=== PATIENT | male | born 1965 | race Caucasian/White ===

== ENCOUNTER 2017-03-09 14:59 | Observation (INO) | payer SELFPAY ==
[2017-03-09] VITALS (7 sets, daily range): BP systolic 113–182; BP diastolic 60–102; PULSE 60–93; RESP 18–20; TEMP 97–98.7; O2SAT 94–98
[~2017-03-09] VITALS: Ht 157.5 cm; Wt 96.0 kg
[~2017-03-09 14:59] MED LIST: CIPR500T4 PO; DIFL500T PO; METR500I3 PO
[2017-03-09] MEDS ORDERED: NITROGLYCERIN 0.4 MG SL 25 TABS/BTL SL ONE (15:30)
[2017-03-09] MEDS ORDERED: ASPIRIN 325 MG TAB PO ONE (15:30)
[2017-03-09] MEDS: SODIUM CHLORIDE 0.9% FLUSH 10 ML FLUSH IVF PRN ×2 (15:42→15:50)
--- NOTE | 2017-03-09 15:43 | RADRPT ---
EXAM DATE/TIME: 03/09/2017 15:39 [place] COMPARISON: CHEST SINGLE AP, August 31, 2013, 15:39. INDICATIONS : Chest pressure and pain on the right side. MEDICAL HISTORY : Hypertension. SURGICAL HISTORY : None. ENCOUNTER: Initial ACUITY: 1 day PAIN SCORE: 5/10 LOCATION: Right upper chest FINDINGS: A single view of the chest demonstrates the lungs to be symmetrically aerated without evidence of mas s, infiltrate or effusion. The cardiomediastinal contours are unremarkable. Osseous structures are intact. CONCLUSION: Normal examination. Mik Alegre MD on March 09, 2017 at 15:41 Board Certified Radiologist. This report was verified electronically.
--- NOTE | 2017-03-09 15:44 | PD ---
HPI Chief Complaint: Chest Pain Time Seen by Provider: 15:38 Travel History International Travel<30 days: No Contact w/Intl Traveler<30days: No Traveled to known affect area: No History of Present Illness HPI 51-year-old male that presents to the ED for evaluation of chest pain. Patient has had this chest pain on and off since this morning. Per patient is pressure- like and comes and goes. Per patient is becoming more severe and progressively has worsened. He states that the pain currently 6 out of 10. Pressure-like. Per patient he feels like there is gas in his epigastric area and he has to move up but nothing comes up. He states that he has a history of hypertension and high cholesterol but takes no medications for them. No history of smoking. Does have a history of gastritis in the past. He states that he's never had anything like this before however. He did took an ibuprofen for this. No relief. Denies any headache. Per patient he does get diaphoretic. Has no allergies to medication. Chest pain does not radiate. States mainly on the epigastric area on the left side. No reproducible with touch. 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 HEAD: Atraumatic. Normocephalic. EYES: Pupils equal and round. No scleral icterus. No injection or drainage. ENT: No nasal bleeding or discharge. Mucous membranes pink and moist. Tongue is midline. No uvula deviation. NECK: Trachea midline. No JVD. CARDIOVASCULAR: Regular rate and rhythm. No murmurs, S3, S4. RESPIRATORY: No accessory muscle use. Clear to auscultation. Breath sounds equal bilaterally. GASTROINTESTINAL: Abdomen soft, non-tender, nondistended. Hepatic and splenic margins not palpable. MUSCULOSKELETAL: Extremities without clubbing, cyanosis, or edema. No obvious deformities. Full range of motion of the upper and lower extremities bilaterally. 2+ pulses bilaterally. NEUROLOGICAL: Awake and alert. No obvious cranial nerve deficits. Motor grossly within normal limits. Five out of 5 muscle strength in the arms and legs. Normal speech. PSYCHIATRIC: Appropriate mood and affect; insight and judgment normal. Data Data Last Documented VS Vital Signs Date Time Temp Pulse Resp B/P Pulse Ox O2 Delivery O2 Flow Rate FiO2 03/09/17 15:51 84 160/84 125/70 03/09/17 15:51 97 Room Air 03/09/17 15:08 98.7 19 Orders Electrocardiogram (03/09/17 15:17) Ckmb (Isoenzyme) Profile (03/09/17 15:17) Complete Blood Count With Diff (03/09/17 15:17) Comprehensive Metabolic Panel (03/09/17 15:17) Magnesium (Mg) (03/09/17 15:17) Prothrombin Time / Inr (Pt) (03/09/17 15:17) Act Partial Throm Time (Ptt) (03/09/17 15:17) Troponin I (03/09/17 15:17) Lipase (03/09/17 15:17) Chest, Single Ap (03/09/17 15:17) Ecg Monitoring (03/09/17 15:17) Bilateral Bp Monitoring (03/09/17 15:17) Iv Access Insert/Monitor (03/09/17 15:17) Oximetry (03/09/17 15:17) Oxygen Administration (03/09/17 15:17) Aspirin (Aspirin) (03/09/17 15:30) Sodium Chloride 0.9% Flush (Ns Flush) (03/09/17 15:30) Nitroglycerin Sl (Nitrostat Sl) (03/09/17 15:30) CKMB (03/09/17 15:30) CKMB% (03/09/17 15:30) Labs Laboratory Tests Test 03/09/17 15:30 White Blood Count 12.5 TH/MM3 Red Blood Count 4.99 MIL/MM3 Hemoglobin 15.0 GM/DL Hematocrit 43.3 % Mean Corpuscular Volume 86.9 FL Mean Corpuscular Hemoglobin 30.0 PG Mean Corpuscular Hemoglobin 34.6 % Concent Red Cell Distribution Width 13.0 % Platelet Count 296 TH/MM3 Mean Platelet Volume 8.6 FL Neutrophils (%) (Auto) 69.5 % Lymphocytes (%) (Auto) 20.2 % Monocytes (%) (Auto) 6.2 % Eosinophils (%) (Auto) 3.2 % Basophils (%) (Auto) 0.9 % Neutrophils # (Auto) 8.7 TH/MM3 Lymphocytes # (Auto) 2.5 TH/MM3 Monocytes # (Auto) 0.8 TH/MM3 Eosinophils # (Auto) 0.4 TH/MM3 Basophils # (Auto) 0.1 TH/MM3 CBC Comment DIFF FINAL Differential Comment Prothrombin Time 10.4 SEC Prothromb Time International 0.9 RATIO Ratio Activated Partial 27.2 SEC Thromboplast Time Sodium Level 140 MEQ/L Potassium Level 4.7 MEQ/L Chloride Level 105 MEQ/L Carbon Dioxide Level 25.6 MEQ/L Anion Gap 9 MEQ/L Blood Urea Nitrogen 14 MG/DL Creatinine 1.13 MG/DL Estimat Glomerular Filtration 69 ML/MIN Rate Random Glucose 131 MG/DL Calcium Level 8.9 MG/DL Magnesium Level 2.1 MG/DL Total Bilirubin 0.7 MG/DL Aspartate Amino Transf 41 U/L (AST/SGOT) Alanine Aminotransferase 31 U/L (ALT/SGPT) Alkaline Phosphatase 86 U/L Total Creatine Kinase 169 U/L Troponin I 0.02 NG/ML Total Protein 7.9 GM/DL Albumin 4.2 GM/DL Lipase 100 U/L [facility] Medical Decision Making Medical Screen Exam Complete: Yes Emergency Medical Condition: Yes Medical Record Reviewed: Yes Interpretation(s) EKG shows sinus rhythm with no sign of acute ischemia or arrhythmia. Read by me and attending. CBC & BMP Diagram 03/09/17 15:30 Troponin and CK-MB negative. LFTs and lipase within normal limits. Last Impressions Chest X-Ray 03/09/17 1517 Signed Impressions: Service Date/Time: Thursday, March 09, 2017 15:39 - CONCLUSION: Normal examination. Mik Alegre MD Differential Diagnosis Chest pain versus a typical chest pain versus ACS versus pancreatitis versus epigastric pain Narrative Course 51-year-old male that presents to the ED for evaluation of chest pain. Patient was properly examined and was found to have signs and symptoms concerning for cardiac disease. Initial EKG was negative for acute ischemia. Labs and imaging ordered. Labs and imaging were essentially unremarkable. Patient does have risk factors including hypertension and high cholesterol. Age as well. Recommendations for admission to the chest pain center. Patient agrees with plan. Patient was admitted to the chest pain center for ACS rule out. Diagnosis Primary Impression: Chest pain in adult Admitting Information Admitting Physician Requests: Vipul Hdz Mar 09, 2017 15:44
[2017-03-09 16:04] LABS: AUTOMATED NEUTROPHIL # 8.7 TH/MM3 (1.8-7.7); BASOPHIL # 0.1 TH/MM3 (0-0.2); BASOPHIL % 0.9 % (0.0-2.0); EOSINOPHIL # 0.4 TH/MM3 (0-0.4); EOSINOPHIL % 3.2 % (0.0-4.0); HEMATOCRIT 43.3 % (39.0-51.0); HEMO FLAGS DIFF FINAL; LYMPH % 20.2 % (9.0-44.0); LYMPHOCYTE # 2.5 TH/MM3 (1.0-4.8); MEAN CELL VOLUME 86.9 FL (80.0-100.0); MEAN CORPUSCULAR HGB CONC 34.6 % (32.0-36.0); MONO % 6.2 % (0.0-8.0); NEUT % 69.5 % (16.0-70.0); PLATELET COUNT 296 TH/MM3 (150-450); RED BLOOD COUNT 4.99 MIL/MM3 (4.50-5.90); WHITE BLOOD COUNT 12.5 TH/MM3 (4.0-11.0)
[2017-03-09 16:07] LABS: APTT (PATIENT) 27.2 SEC (24.3-30.1); INTERNATIONAL NORMALIZED RATIO 0.9 RATIO; PROTHROMBIN TIME - PATIENT 10.4 SEC (9.8-11.6)
[2017-03-09 16:18] LABS: ALT (GPT) 31 U/L (12-78); ANION GAP 9 MEQ/L (5-15); BICARBONATE 25.6 MEQ/L (21.0-32.0); BLOOD UREA NITROGEN 14 MG/DL (7-18); CHLORIDE 105 MEQ/L (98-107); GLOMERULAR FILTRATION RATE 69 ML/MIN (>89); MAGNESIUM 2.1 MG/DL (1.5-2.5); SODIUM (NA) 140 MEQ/L (136-145)
[2017-03-09 16:20] LABS: ALKALINE PHOSPHATASE 86 U/L (45-117); AST (GOT) 41 U/L (15-37); CREATINE KINASE 169 U/L (39-308); TOTAL BILIRUBIN ADULT 0.7 MG/DL (0.2-1.0)
[2017-03-09 16:21] LABS: POTASSIUM 4.7 MEQ/L (3.5-5.1)
[2017-03-09 16:32] LABS: CKMB LESS THAN 0.5 NG/ML (0.5-3.6)
[2017-03-09] MEDS ORDERED: ONDANSETRON HCL 4 MG/2 ML VIAL IV PRN (17:30)
[2017-03-09] MEDS ORDERED: SODIUM CHLORIDE 0.9% FLUSH 10 ML FLUSH IV FLUSH PRN (17:30)
[2017-03-09] MEDS ORDERED: cloNIDine HCL 0.1 MG TAB PO PRN (17:30)
[2017-03-09] MEDS ORDERED: RESP: ALBUTEROL 2.5 MG/IPRATROPIUM 0.5 MG NEB (PRN) INH (17:30)
--- NOTE | 2017-03-09 17:34 | HHI.HP ---
[facility] Primary Care Physician Anuj Paul M.D. Chief Complaint Chest pain History of Present Illness This is a 51-year-old male that presents to the ED via private vehicle with a complaint of developing a chest discomfort and 8:00 this morning while he was at work. 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 He states the discomfort as a pressure. It begins in the center of his chest radiating a little bit to the right. When it occurs it last for 5 minutes but he states that reoccurred 5 or 6 more times. He was little short of breath with it initially. Denies nausea or diaphoresis. He's not had this in the past. He cannot recall prior cardiac workup. Denies recent illnesses. Found nothing to bring on the discomfort. Review of Systems General: Patient denies fevers, chills recent, and recent travel HEENT: Patient denies headache, sore throat, difficulty swallowing. Cardiovascular: Has the chest discomfort as mentioned above. Denies sensation of heart beating rapidly or irregularly. No syncope. Respiratory: Initially a little short of breath. Denies inspirational chest discomfort. Denies coughing wheezing or hemoptysis. GI: Patient denies nausea, vomiting, diarrhea, abdominal pain, bloody stools. Musculoskeletal: Patient denies joint pain or edema. Denies calf pain or edema. Neurovascular: Patient denies numbness, tingling, weakness in extremities. Denies headache. Endocrine: Denies polyuria and polydipsia. Hematologic: Denies easy bruising. Skin: Denies rash or itching. Past Family Social History Allergies: Coded Allergies: No Known Allergies (Verified , 04/10/15) Past Medical History Kidney stones. History of hypertension but stopped taking medication only 6 months ago and believes that his blood pressure has been fine since. Hyperlipidemia but states his never taken medication for this. Denies diabetes and known CAD. Past Surgical History Lithotripsy. Reported Medications Reported Meds & Active Scripts Active Active Ordered Medications Current Medications Medications (Trade) Dose Ordered Sig/Armando Route Start Time Stop Time Status Last Admin (NS Flush) 2 ml UNSCH PRN IVF 03/09/17 15:30 03/09/17 15:50 (NS Flush) 2 ml UNSCH PRN IV FLUSH 03/09/17 17:30 (NS Flush) 2 ml BID IV FLUSH 03/09/17 21:00 (Tylenol) 500 mg Q4H PRN PO 03/09/17 17:30 (Zofran Inj) 4 mg Q6H PRN IV 03/09/17 17:30 (Nitroglycerin 2% Oint) 1 inch Q6HR TOP 03/09/17 18:00 Family History Denies family history of CAD. Social History Patient is a lifetime nonsmoker. He states that he is an alcoholic and has been sober for 2-1/2 years. Denies illicit drugs. He is . Physical Exam Vital Signs Vital Signs Date Time Temp Pulse Resp B/P Pulse Ox O2 Delivery O2 Flow Rate FiO2 03/09/17 15:51 84 160/84 125/70 03/09/17 15:51 160/84 03/09/17 15:51 97 Room Air 03/09/17 15:11 97 Room Air 03/09/17 15:08 98.7 93 19 160/84 97 03/09/17 15:02 97.8 90 182/102 98 Physical Exam GENERAL: This is a well-nourished, well-developed patient, in no apparent distress. Patient speaks in clear complete sentences. Patient is pleasant. HEENT: Head is atraumatic and normocephalic. Neck is supple without lymphadenopathy and trachea is midline. No JVD or carotid bruits. CARDIOVASCULAR: Regular rate and rhythm without murmurs, gallops, or rubs. RESPIRATORY: Clear to auscultation. Breath sounds equal bilaterally. No wheezes , rales, or rhonchi. Chest wall is nontender. No use of accessory muscles. GASTROINTESTINAL: Abdomen is nontender, nondistended. Abdomen soft. No obvious pulsatile mass or bruit. No CVA tenderness. Strong femoral pulses bilaterally. Normal bowel sounds in all quadrants. MUSCULOSKELETAL: Patient is moving upper and lower extremities freely. No calf tenderness or edema, no Homans sign. Strong pulses in upper and lower extremities. NEUROLOGICAL: Patient is alert and oriented. Cranial nerves 2-12 are grossly intact. No focal deficits and speech is clear. SKIN: No rash and turgor is normal. Laboratory Laboratory Tests Test 03/09/17 15:30 White Blood Count 12.5 Red Blood Count 4.99 Hemoglobin 15.0 Hematocrit 43.3 Mean Corpuscular Volume 86.9 Mean Corpuscular Hemoglobin 30.0 Mean Corpuscular Hemoglobin 34.6 Concent Red Cell Distribution Width 13.0 Platelet Count 296 Mean Platelet Volume 8.6 Neutrophils (%) (Auto) 69.5 Lymphocytes (%) (Auto) 20.2 Monocytes (%) (Auto) 6.2 Eosinophils (%) (Auto) 3.2 Basophils (%) (Auto) 0.9 Neutrophils # (Auto) 8.7 Lymphocytes # (Auto) 2.5 Monocytes # (Auto) 0.8 Eosinophils # (Auto) 0.4 Basophils # (Auto) 0.1 CBC Comment DIFF FINAL Differential Comment Prothrombin Time 10.4 Prothromb Time International 0.9 Ratio Activated Partial 27.2 Thromboplast Time Sodium Level 140 Potassium Level 4.7 Chloride Level 105 Carbon Dioxide Level 25.6 Anion Gap 9 Blood Urea Nitrogen 14 Creatinine 1.13 Estimat Glomerular Filtration 69 Rate Random Glucose 131 Calcium Level 8.9 Magnesium Level 2.1 Total Bilirubin 0.7 Aspartate Amino Transf 41 (AST/SGOT) Alanine Aminotransferase 31 (ALT/SGPT) Alkaline Phosphatase 86 Total Creatine Kinase 169 Creatine Kinase MB LESS THAN 0.5 Troponin I 0.02 Total Protein 7.9 Albumin 4.2 Lipase 100 Result Diagram: 03/09/17 1530 03/09/17 1530 Imaging Last 24 hours Impressions Chest X-Ray 03/09/17 1517 Signed Impressions: Service Date/Time: Thursday, March 09, 2017 15:39 - CONCLUSION: Normal examination. Mik Alegre MD Course Initial EKG is sinus rhythm rate of [address] segment depressions or elevations. Assessment and Plan Assessment and Plan * Chest pain: Patient will continue to have serial cardiac enzymes and EKGs for ruling out purposes. He will be seen by Dr. Ga Savage of cardiology in the chest pain center in the morning. Likely to proceed with stress testing if he rules out. He'll be discharged home if the stress test was nonischemic. States he has history of hypertension but has not needed medication months. He also states his history of hyperlipidemia but has never been on medication for this. He needs to follow-up with his primary care physician Dr. Anuj Paul to discuss this. Patient is stable at this time. He is agreeable to this plan. Silvino Bocanegra Mar 09, 2017 17:34
[2017-03-09] MEDS: NITROGLYCERIN 2% OINT 1 GM PACKET TOP SCH (18:19)
[2017-03-09] MEDS: PANTOPRAZOLE SOD 40 MG DELAYED RELEASE TAB PO SCH (18:19)
[2017-03-09] MEDS: SODIUM CHLORIDE 0.9% FLUSH 10 ML FLUSH IV FLUSH SCH (20:25)
[2017-03-09 20:49] LABS: CREATINE KINASE 178 U/L (39-308)
[2017-03-09 21:36] LABS: CKMB 9.2 NG/ML (0.5-3.6)
[2017-03-09] MEDS ORDERED: ATORVASTATIN 10 MG TAB PO SCH (21:45)
[2017-03-09] MEDS ORDERED: ASPIRIN 81 MG CHEW TAB CHEW ONE (21:45)
[2017-03-09] MEDS ORDERED: ENOXAPARIN SODIUM 80 MG/0.8 ML SYRINGE SQ ONE (22:00)
[2017-03-09] MEDS: ACETAMINOPHEN 500 MG CPLT PO PRN (22:45)
[2017-03-09 23:59] LABS: HDL CHOLESTEROL 31.5 MG/DL (40.0-60.0)
[2017-03-10] VITALS (11 sets, daily range): BP systolic 104–147; BP diastolic 62–81; PULSE 68–92; RESP 14–18; TEMP 97.9–98.5; O2SAT 95–97
[2017-03-10 00:02] LABS: CREATINE KINASE 259 U/L (39-308)
[2017-03-10] MEDS: NITROGLYCERIN 2% OINT 1 GM PACKET TOP SCH ×3 (00:17→12:00)
[2017-03-10 00:23] LABS: CKMB 22.5 NG/ML (0.5-3.6)
[2017-03-10] MEDS ORDERED: ASPIRIN 81 MG CHEW TAB CHEW SCH (09:00)
[2017-03-10] MEDS ORDERED: ASPIRIN 325 MG TAB PO SCH (09:00)
--- NOTE | 2017-03-10 09:23 | MB ---
cc: DULCE MARIA SMALL DATE OF CONSULTATION: 03/10/2017 REASON FOR CONSULTATION [id number] SD. HISTORY OF PRESENT ILLNESS This is a 51-year-old gentleman without prior history of known heart disease who presents to the emergency department with substernal chest pain which started yesterday morning. The patient states that he was at work, he does heavy lifting, and started developing a crescendo-type substernal chest pain. He denies any significant radiation, was associated with some shortness of breath, no diaphoresis or nausea. He came into the emergency department for further evaluation. There initial electrocardiogram and troponin were negative. He is scheduled for a stress test today but his second troponin and third troponin came back elevated. He has not had any recurrent symptoms. We are consulted for consideration of cardiac catheterization. PAST MEDICAL HISTORY 1. Kidney stones. 2. Hypertension. 3. Hyperlipidemia. MEDICATIONS Reported medications are none. ALLERGIES None. FAMILY HISTORY Denies any family history of early coronary artery disease or sudden cardiac . SOCIAL HISTORY Prior history of alcohol abuse, although he has not drank in 2-1/2 years. Denies any illicit drug use. Denies any smoking history. REVIEW OF SYSTEMS A 12-point review of systems was performed and negative unless otherwise noted in the history of present illness. PHYSICAL EXAMINATION VITAL SIGNS: Temperature 97, pulse 70, blood pressure 109/62 mmHg. GENERAL: Alert and oriented x3, in no acute distress. HEENT: Pupils reactive to light and accommodation. Extraocular movements are intact. NECK: No jugular venous distention. No thyromegaly. No lymphadenopathy. No carotid bruits. LUNGS: Clear to auscultation bilaterally. CARDIOVASCULAR: Regular rate and rhythm without murmurs, rubs or gallops. ABDOMEN: Nontender, nondistended. Good bowel sounds. No hepatosplenomegaly. EXTREMITIES: No clubbing, cyanosis or edema. Good peripheral pulses. NEUROLOGIC: Cranial nerves intact. Motor and sensory grossly intact. LABORATORY WBC 12.5, hemoglobin 15, platelet count 296. INR is 0.9. Troponin 1.86. Sodium 140, potassium 4.7, BUN 14, creatinine 1.13. Electrocardiogram: Sinus rhythm, no significant ischemic changes. ASSESSMENT 1. [id number] myocardial infarction. 2. Hypertension. 3. Hyperlipidemia. PLAN Given the patient's suggestive symptoms, risk factors, elevated troponin, all are consistent with acute coronary syndrome. We will plan for cardiac catheterization later today. The risks, benefits and alternatives were discussed with the patient. The patient understood and consented to the procedure. Will also obtain a 2-D echocardiogram to document ejection fraction. He is on aspirin, beta jose and statin therapy and is chest pain free. MD SANDER Schneider/BOBBY /8:58 AM /9:15 AM
[2017-03-10] MEDS: CARVEDILOL 3.125 MG TAB PO SCH ×2 (11:13→21:10)
[2017-03-10] MEDS: PANTOPRAZOLE SOD 40 MG DELAYED RELEASE TAB PO SCH (11:13)
[2017-03-10] MEDS: SODIUM CHLORIDE 0.9% FLUSH 10 ML FLUSH IV FLUSH SCH ×2 (11:15→21:11)
--- NOTE | 2017-03-10 13:04 | PD.CONS ---
HPI Service [facility] Consult Requested By Silvino Bocanegra Reason for Consult transfer of care from chest pain center Primary Care Physician Anuj Paul M.D. Diagnoses: (1) Chest pain in adult History of Present Illness Pt is a 51 yr old male w PMHx of HTN, recovering alcoholic, hyperlipidemia, presented to the chest pain center w complaints of chest pressure/tightness. Pt states that he woke up the day prior feeling uneased, he felt pressure on his chest and thought that it was gas. he tried to burp to see if that would relieve his pressure and drank soda but that didn't help. he went to work and the pressure-mid chest continued back and forth. He also felt some radiating pressure up to his neck. Denied any chest pain, SOB, nausea vomiting, diaphoresis, abdominal pain, palpitations. when he arrived here he receive nitroglycerin and that relieved his pressure. Currently he feels ok, no longer has the chest pressure Review of Systems Except as stated in HPI: all other systems reviewed are Neg Past Family Social History Allergies: Coded Allergies: No Known Allergies (Verified , 04/10/15) Past Medical History HTN, hyperlipidemia, no prior hx of CAD, hx of withdrawal sz in the past. alcoholism which he quit 2.5 years ago, kidney stones Past Surgical History lithotripsy Reported Medications Reported Meds & Active Scripts Active Family History mother alcoholic father had heart disease Social History denies any smoking hx was a heavy drinker for at least 10 years admits to trying a "couple of things" here and there in the past when asked about illegal drug use Physical Exam Vital Signs Vital Signs Date Time Temp Pulse Resp B/P Pulse Ox O2 Delivery O2 Flow Rate FiO2 03/10/17 12:32 97.9 73 14 118/73 97 03/10/17 07:53 97.9 70 15 109/62 95 03/10/17 04:00 81 03/10/17 03:33 98.0 69 18 104/62 95 03/10/17 00:00 74 03/09/17 23:50 98.1 86 20 113/65 94 03/09/17 23:45 18 03/09/17 20:41 97.0 60 18 120/60 96 03/09/17 20:00 95 03/09/17 20:00 78 03/09/17 19:00 78 03/09/17 15:51 84 160/84 125/70 03/09/17 15:51 160/84 03/09/17 15:51 97 Room Air 03/09/17 15:11 97 Room Air 03/09/17 15:08 98.7 93 19 160/84 97 03/09/17 15:02 97.8 90 182/102 98 Physical Exam GENERAL: This is a well-nourished, well-developed patient. SKIN: No rashes, ecchymoses or lesions. Cool and dry. HEAD: Atraumatic. Normocephalic. No temporal or scalp tenderness. EYES: Pupils equal round and reactive. Extraocular motions intact. No scleral icterus. No injection or drainage. ENT: Nose without drainage. Throat without erythema, tonsillar hypertrophy or exudate. Uvula midline. Airway patent. NECK: Trachea midline. No JVD CARDIOVASCULAR: Regular rate and rhythm without murmurs. RESPIRATORY: Clear to auscultation. Breath sounds equal bilaterally. No wheezes. GASTROINTESTINAL: Abdomen soft, non-tender, nondistended. No palpable masses. No guarding. MUSCULOSKELETAL: Extremities without edema. No calf tenderness. Negative Homans sign bilaterally. NEUROLOGICAL: Awake and alert. Cranial nerves II through XII intact. Motor and sensory grossly within normal limits. Five out of 5 muscle strength in all muscle groups. Normal speech. Laboratory Laboratory Tests Test 03/09/17 03/09/17 03/09/17 15:30 19:59 23:29 White Blood Count 12.5 Red Blood Count 4.99 Hemoglobin 15.0 Hematocrit 43.3 Mean Corpuscular Volume 86.9 Mean Corpuscular Hemoglobin 30.0 Mean Corpuscular Hemoglobin 34.6 Concent Red Cell Distribution Width 13.0 Platelet Count 296 Mean Platelet Volume 8.6 Neutrophils (%) (Auto) 69.5 Lymphocytes (%) (Auto) 20.2 Monocytes (%) (Auto) 6.2 Eosinophils (%) (Auto) 3.2 Basophils (%) (Auto) 0.9 Neutrophils # (Auto) 8.7 Lymphocytes # (Auto) 2.5 Monocytes # (Auto) 0.8 Eosinophils # (Auto) 0.4 Basophils # (Auto) 0.1 CBC Comment DIFF FINAL Differential Comment Prothrombin Time 10.4 Prothromb Time International 0.9 Ratio Activated Partial 27.2 Thromboplast Time Sodium Level 140 Potassium Level 4.7 Chloride Level 105 Carbon Dioxide Level 25.6 Anion Gap 9 Blood Urea Nitrogen 14 Creatinine 1.13 Estimat Glomerular Filtration 69 Rate Random Glucose 131 Calcium Level 8.9 Magnesium Level 2.1 Total Bilirubin 0.7 Aspartate Amino Transf 41 (AST/SGOT) Alanine Aminotransferase 31 (ALT/SGPT) Alkaline Phosphatase 86 Total Creatine Kinase 169 178 259 Creatine Kinase MB LESS THAN 0.5 9.2 22.5 Troponin I 0.02 0.66 1.86 Total Protein 7.9 Albumin 4.2 Triglycerides Level 300 Cholesterol Level 241 LDL Cholesterol 150 HDL Cholesterol 31.5 Cholesterol/HDL Ratio 7.65 Lipase 100 Result Diagram: 03/09/17 1530 03/09/17 1530 Imaging Last Impressions Chest X-Ray 03/09/17 1517 Signed Impressions: Service Date/Time: Thursday, March 09, 2017 15:39 - CONCLUSION: Normal examination. Mik Alegre MD Assessment and Plan Assessment and Plan Chest pressure/ concerning for ACS. serial CE trended up to 1.86. He was evaluated Dr. Ga Savage of cardiology and Dr. Giordano was consulted. He recommended a cardiac cath for which pt is scheduled for today. Continue BB, ASA and statin and nitro prn. continue TELE HTN: was not on any meds. currentlyon beta jose hyperlipidemia: on statin. alcoholism: stable quit 2.5 years ago Thank you for this consultation, we will continue to follow Code Status full Discussed Condition With Silvino Bocanegra and patient Magdalena Moreno MD Mar 10, 2017 13:04
[2017-03-10] MEDS ORDERED: HEPARIN-NS/PF INJ 500 ML ONE (13:36)
[2017-03-10] MEDS ORDERED: NITROGLYCERIN INJ 5 ML ONE (13:37)
[2017-03-10] MEDS ORDERED: MIDAZOLAM HCL 2 MG/2 ML VIAL ONE (13:37)
[2017-03-10] MEDS ORDERED: HEPARIN SODIUM - IV 10,000 UNITS/10 ML VIAL ONE (13:53)
[2017-03-10] MEDS: CLOPIDOGREL 75 MG TAB PO SCH (14:45)
--- NOTE | 2017-03-10 14:49 | CATHPROC ---
[facility] HIS Report Study Information Study Number Admission Scheduled Start Study Start [id number] Mar 09 2017 4:29PM 03/10/2017 Mar 10 2017 1:45PM [place] [facility] Cardiac Catheterization Admit Source Facility Department Emergency department [facility] - Grooming Sal[employer] Manager Physician and Clinical Staff Initial Mik Cotter Cable Engineer Outside Plantkimber Vasquez RN, Rossy Diop RN Recorder Anne Wolfe,APRON CLEANER TECH2 Scrub Jayjay Bruce,RT(R) Procedures Performed Procedure Location (Site) Vessel Name Coronary Angiograms RCA Right Coronary Equipment Time [place] Polisher Description Size Mfg Part Number Used/Scraped TRANSDUCER, TRUWAVE [id number] 14:13 GUIDRY APARICIO * Used W/STOCKCOCK *[id number] *[id number] *[id number] 14:13 [employer] PACK, CCL CUSTOM * Used *[id number] 14:13 [employer] SUPPORT, ARTERIAL ADULT [id number] Used [id number] 14:13 [employer] PACER PEN, SKIN DUAL W/ RULER * Used *[id number] BAND, RADIAL COMPRESSION TR [id number] 14:25 [employer] 24CM Used SHORT 24 *[id number] SHEATH, FR6 RADIAL PRELUDE 14:13 [employer] FR 6 [id number] Used EASE 11CM [id number] 14:13 [employer] WIRE, EXCHANGE 260CM 3MMJ 260CM Used *[id number] 14:13 [employer]COMED OMNIPAQUE, 350 MG, 150ML 150ML [id number] Used [id number] 14:13 Palmer Hargreaves BLANKET,WARM AIR CCL * Used *[id number] History: Allergies Allergy Reaction No Known Allergies History: Risk Factors Family History of Hypertension Dyslipidemia Previous LA Previous Heart Failure Premature CAD Yes Yes No No No Prior Valve Prior PCI Prior CABG Surgery No No No Cerebrovascular Peripheral Artery Chronic Lung On Dialysis Diabetes Disease Disease Disease No No No No No History: Symptoms/Diagnosis Selection Items Chest pain History: Stress Tests Stress or Imaging Studies Performed No Labs Hgb (g/dl) Hct (%) WBC (l/cumm) Platelets (thousands) 11.60-17.00 35.00-51.00 4.00-11.00 150.00-450.00 15.0 43.3 12.5 296 Glucose (mg/dl) BUN (mg/dl) Creatinine (mg/dl) BUN:Creatinine (1:x) 74.00-106.00 7.00-18.00 0.50-1.30 10.00-20.00 131 14 1.1 12.7 Na (meq/l) K (meq/l) 136.00-145.00 3.50-5.10 140 4.7 INR (PTT:PT) 0.90-1.10 0.9 Troponin I (ng/ml) CPK (u/l) CPK-MB (ng/ML) 0.02-0.05 26.00-308.00 0.50-3.60 1.86 259 22.5 Medication Medication Total Dose (Bolus/Oral) Medication Total Dosage/Unit 1% XYLOCAINE 20 mL FENTANYL 50 mcg HEPARIN 5000 units NTG (IC) 200 mcg VERSED 2 mg Medications (Bolus/Oral) Medication Time Given Dosage/Unit Administered By Reason FENTANYL 03/10/2017 2:06:56 PM 50 mcg Alfred Vasquez RN 50 mcg FENTANYL given in lab by Alfred Vasquez RN in Left Antecubital via Peripheral IV. Ordered by Mik Sesay. VERSED 03/10/2017 2:07:22 PM 2 mg Alfred Vasquez RN 2 mg VERSED given in lab by Alfred Vasquez RN in Left Antecubital via Peripheral IV. Ordered by Mik Giordano. 1% XYLOCAINE 03/10/2017 2:10:39 PM 20 mL Mik Giordano 20 mL 1% XYLOCAINE given in lab by Mik Giordano in Right Radial via Subcutaneous. HEPARIN 03/10/2017 2:13:49 PM 5000 units Alfred Vasquez RN 5000 units HEPARIN given in lab by Alfred Vasquez RN in Right Radial via Peripheral IV. Ordered by Mik An. NTG (IC) 03/10/2017 2:14:12 PM 200 mcg Mik Giordano 200 mcg NTG (IC) given in lab by Mik Giordano in Right Radial via Intra-arterial. Ordered by Mik Giordano. Medication (Drip) Medication Time Given Dosage/Unit Concentration/Unit Diluent (ml) Solution IV Solutions 03/10/2017 1:52:46 PM 0 mL (IV) 500 NaCl .9 Patient arrived on IV Solutions in Left Antecubital via Peripheral IV. Pump/Drip Flow = 20 ml/hr usin g NaCl .9. Initial Case Assessment Cardiovascular HR Rhythm NIBP Chest Pain 75 sr 134/82 0 Circulatory - Right Pulses Radial 2 Scale (0,1,2,3,4,d) Scale (0,1,2,3,4,d) Neurological State Oriented to time-place- Alert Moves all extremities person Respiration - General Respiration Rate SpO2 (%) (B/min) 11 96 Chronological Log Time Study Chronological Log 13:42:51 Patient arrived via Bed. 13:42:58 Patient Name, D.O.B, / Armband Verified By R.N. 13:44:08 Pre-op and post- op instructions given; patient acknowledges understanding of instruction s. 13:44:14 Verbal Stimulation=2 Physical Stimulation=2 Airway=2 Respiration=2 TOTAL=8. (0=absent, 1= limited, 2=present) 13:48:15 Allens test performed on the right radial and ulnar artery. 13:48:48 Reference ECG taken Vitals capture started with the following parameters, Patient=Adult, Interval=5 min, Initial Pr lcdyfm=499 mmHg, 13:49:03 Deflation Rate=5 mmHg 13:49:06 Consent signed by the physician and the patient and verified by the Grooming Salon Manager staff. 13:49:28 Presedation assessment performed by Grooming Salon Manager RN. 13:49:35 HR=74 bpm, RYSY=780/82 mmhg, SpO2=96.0 %, Resp=16 B/min, Jo=10 13:52:39 Patient has been NPO for More than 6Hrs. 13:52:40 Skin Breakdown-none 13:52:41 Shelly Prominences Protected 13:52:45 A # 20 IV was noted in the Antecubital (left). Grade = patent 13:52:46 Patient arrived on IV Solutions in Left Antecubital via Peripheral IV. Pump/Drip Flow = 20 ml/hr using NaCl .9. 13:52:47 History and physical on the chart or being dictated. Assessment: Initial Case, HR=75 BPM, Rhythm=sr, ZRJR=025/82 mmhg, Chest Pain=0 Right Pulses: Radial=2 13:52:49 Neurological: State=Alert, Ox3, RODAS Respiration: Resp=11 B/min, SpO2=96 % 13:52:54 Right groin and right wrist prepped with 2% chlorhexidine, and draped after a 3 min. waitin g time. 13:54:36 HR=76 bpm, ZUEP=080/84 mmhg, SpO2=96 %, Resp=19 B/min, Jo=10 13:59:37 HR=75 bpm, UPFS=198/87 mmhg, SpO2=98.0 %, Resp=17 B/min 14:01:22 Pressure channel 1 zeroed. 14:02:14 MD paged 14:03:20 MD responded 14:04:34 HR=70 bpm, PBWA=282/88 mmhg, SpO2=98.0 %, Resp=18 B/min, Pain=0, Jo=10, Valladares=2 14:05:52 MD arrived. 14:06:56 50 mcg FENTANYL given in lab by Alfred Vasquez RN in Left Antecubital via Peripheral IV. Orde red by Mik Giordano. 14:07:22 2 mg VERSED given in lab by Alfred Vasquez RN in Left Antecubital via Peripheral IV. Ordered by Mik Giordano. 14:09:40 HR=81 bpm, JVDO=213/85 mmhg, SpO2=95.0 %, Resp=12 B/min Time Out. Correct patient, correct procedure,correct physician, ,power injector loaded or not l oaded with contrast with 14:10:26 surgical team present. Time Out Concurred by MD, individual staff and DESULFURIZER OPERATOR in procedure 14:10:38 Case Start 14:10:39 20 mL 1% XYLOCAINE given in lab by Mik Giordano in Right Radial via Subcutaneous. 14:12:05 Access site was Radial Artery. A SHEATH, FR6 RADIAL PRELUDE EASE 11CM FR 6 was advanced into the Radial (right) using the Perc utaneous 14:12:23 technique. 14:12:49 In the Radial (right) the SHEATH, FR6 RADIAL PRELUDE EASE 11CM FR [address] by Mik Giordano. 14:13:49 5000 units HEPARIN given in lab by Alfred Vasquez RN in Right Radial via Peripheral IV. Order ed by Mik Giordano. 14:14:12 200 mcg NTG (IC) given in lab by Mik Giordano in Right Radial via Intra-arterial. Ordered by Mik Giordano. 14:14:34 HR=79 bpm, GDAY=448/82 mmhg, SpO2=98.0 %, Resp=12 B/min, Jo=10 A JR 5.0 INFINITI CATHETER FR 5 was advanced over a wire. OMNIPAQUE, 350 MG, 150ML 150ML was us ed for 14:14:37 injections. Recorded Pressure: LV, HR=82, Condition=Condition 1 14:14:50 (Left Ventricle) LV 143/-18/14 Recorded Pressure: LV, Ao, HR=78, Condition=Condition 1 14:14:52 (Left Ventricle) LV 138/-16/15, (Aorta) Ao 113/71/90 14:15:58 The RCA was injected and visualized at various angles. contrast used. After removing the current catheter a JL 3.5 INFINITI CATHETER FR 5 was advanced over a WIRE, EXCHANGE 260CM 14:17:43 3MMJ 260CM. 14:19:40 HR=80 bpm, ZEXB=506/81 mmhg, SpO2=95.0 %, Resp=12 B/min 14:22:43 Catheter was removed 14:23:19 Case End 14:24:39 HR=75 bpm, BGEJ=648/77 mmhg, SpO2=98.0 %, Resp=19 B/min Radial Compression Device Used. 12 mLs of air placed in BAND, RADIAL COMPRESSION TR SHORT 24 2 4CM. Affected 14:26:52 hand 95 % O2 saturation. 14:29:38 HR=76 bpm, IOXQ=392/81 mmhg, SpO2=95 %, Resp=14 B/min 14:30:56 Vitals capture stopped. 14:35:29 Patient moved to bed 14:35:37 Patient transported to DOCU. End Study - Contrast Media Used In Study Contrast Total Opened (mL) Total Used (mL) Total Wasted (mL) Omnipaque 70 70 0 End Study - Maximum Contrast Load Max Contrast Load (mL) 427.3 End Study - Radiation Exposure Fluoro Time (minutes) 3.3 End Study - Patient Disposition Complications Transferred To No Telemetry Bed
--- NOTE | 2017-03-10 14:58 | MA ---
cc: DULCE MARIA SMALL DATE: 03/10/2017 INDICATION [id number] [place]. PROCEDURE PERFORMED 1. Fluoroscopy with interpretation. 2. Left heart catheterization. 3. Coronary angiography. METHOD The risks, benefits and alternatives were discussed with the patient. The patient understood and consented to the procedure. The patient was brought into the catheterization lab and placed on the catheterization table. The right wrist was prepped and draped in a sterile fashion. The right wrist was anesthetized with 2% lidocaine. The right radial artery was cannulated and a 6-Romansh, 7 cm sheath was placed without difficulty. CORONARY ANGIOGRAPHY 1. The left main coronary is angiographically normal. 2. The left anterior descending coronary is mildly aneurysmal in the proximal segment. The midsegment has minor luminal irregularities. The remainder of the left anterior descending coronary is widely patent. There is a very small 1 mm diagonal branch vessel that has a 95% tubular stenosis which is likely the culprit lesion. There is distal ARNIE-II flow in the small diagonal branch. 3. The left circumflex gives rise to a first obtuse marginal branch that is tortuous but widely patent. 4. The right coronary is a dominant vessel giving rise to a posterior descending coronary. The right coronary has minor luminal irregularities. LEFT HEART CATHETERIZATION A 6-Romansh JR5 catheter is advanced across the aortic valve without difficulty. Intraventricular hemodynamics measured at 137/over 4 mmHg. CONCLUSIONS 1. Very small branch vessel coronary artery disease. 2. 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 3. Normal left-sided filling pressures. PLAN The culprit lesion appeared to be a very small diagonal branch not amenable to percutaneous intervention. Will initiate aggressive medical management which includes aspirin, Plavix, statin, beta jose and long-acting nitrate. Echocardiogram is pending. Given the small troponin bump will keep him overnight to make sure he does not have any arrhythmias. If all goes well I anticipate discharge tomorrow. MD SANDER Schneider/BOBBY /2:42 PM /2:51 PM
[2017-03-10] MEDS ORDERED: oxyCODONE/ACETAMINOPHEN 5 MG/325 MG TAB PO PRN (15:30)
[2017-03-10] MEDS ORDERED: BACITRACIN OINT 0.9 GM PKT TOP ONE ×2 (15:30→16:45)
[2017-03-10] MEDS ORDERED: MISC INFORMATION XX ONE (15:30)
--- NOTE | 2017-03-10 16:14 | EKG ---
Date Performed: 03/09/2017 Time Performed: 22:09:03 PTAGE: 51 years EKG: Sinus rhythm NORMAL ECG PREVIOUS TRACING : 03/09/2017 20.07 Since previous tracing, no significant change noted DOCTOR: Ga Savage Interpretating Date/Time 03/10/2017 16:13:39
--- NOTE | 2017-03-10 16:16 | EKG ---
Date Performed: 03/09/2017 Time Performed: 18:04:42 PTAGE: 51 years EKG: Sinus rhythm NON SPECIFIC T WAVE CHANGES INTERPRETATION BASED ON A DEFAULT AGE OF 42 YEARS NO PREVIOUS TRACING DOCTOR: Ga Savage Interpretating Date/Time 03/10/2017 16:15:15
--- NOTE | 2017-03-10 16:16 | EKG ---
Date Performed: 03/09/2017 Time Performed: 20:07:09 PTAGE: 51 years EKG: Sinus rhythm NON SPECIFIC T WAVE CHANGES PREVIOUS TRACING : 03/09/2017 15.11 Since previous tracing, no significant change noted DOCTOR: Ga Savage Interpretating Date/Time 03/10/2017 16:14:28
--- NOTE | 2017-03-10 16:17 | EKG ---
Date Performed: 03/09/2017 Time Performed: 15:11:32 PTAGE: 51 years EKG: Sinus rhythm NONSPECIFIC T WAVE CHANGES NO PREVIOUS TRACING DOCTOR: Ga Savage Interpretating Date/Time 03/10/2017 16:16:39
[2017-03-10] MEDS ORDERED: IOHEXOL 350 MG/ML 100 ML BTL (for Cath Lab) OTHER ONE (17:20)
[2017-03-10] MEDS: oxyCODONE/ACETAMINOPHEN 5 MG/325 MG TAB PO PRN (18:51)
[2017-03-10] MEDS ORDERED: ATORVASTATIN 40 MG TAB PO SCH (21:00)
[2017-03-10] MEDS: ACETAMINOPHEN 500 MG CPLT PO PRN (21:11)
[2017-03-11] VITALS (14 sets, daily range): BP systolic 109–121; BP diastolic 53–81; PULSE 68–94; RESP 18–20; TEMP 97.8–98.2; O2SAT 97–98
[2017-03-11] MEDS: ACETAMINOPHEN 500 MG CPLT PO PRN (04:01)
[2017-03-11 06:43] LABS: AUTOMATED NEUTROPHIL # 6.6 TH/MM3 (1.8-7.7); BASOPHIL # 0.1 TH/MM3 (0-0.2); BASOPHIL % 0.6 % (0.0-2.0); EOSINOPHIL # 0.7 TH/MM3 (0-0.4); EOSINOPHIL % 6.6 % (0.0-4.0); HEMATOCRIT 39.7 % (39.0-51.0); HEMO FLAGS DIFF FINAL; LYMPH % 23.8 % (9.0-44.0); LYMPHOCYTE # 2.6 TH/MM3 (1.0-4.8); MEAN CELL VOLUME 86.6 FL (80.0-100.0); MEAN CORPUSCULAR HEMOGLOBIN 30.2 PG (27.0-34.0); MEAN CORPUSCULAR HGB CONC 34.9 % (32.0-36.0); MONO % 8.5 % (0.0-8.0); NEUT % 60.5 % (16.0-70.0); PLATELET COUNT 243 TH/MM3 (150-450); RED BLOOD COUNT 4.59 MIL/MM3 (4.50-5.90); RED CELL DISTRIBUTION WIDTH 12.6 % (11.6-17.2); WHITE BLOOD COUNT 10.9 TH/MM3 (4.0-11.0)
[2017-03-11] MEDS ORDERED: ISOSORBIDE MONONITRATE 30 MG TAB PO SCH (07:00)
[2017-03-11 07:11] LABS: BICARBONATE 27.8 MEQ/L (21.0-32.0); POTASSIUM 3.7 MEQ/L (3.5-5.1)
--- NOTE | 2017-03-11 08:19 | PD.CARD.PN ---
Subjective Subjective Remarks denies chest pain, no arrhythmias seen on tele Objective Vital Signs / I&O Vital Signs Date Time Temp Pulse Resp B/P Pulse Ox O2 Delivery O2 Flow Rate FiO2 03/11/17 08:06 98 21 03/11/17 06:00 72 03/11/17 05:27 16 03/11/17 05:16 21 03/11/17 05:00 72 03/11/17 04:00 78 03/11/17 03:00 74 03/11/17 03:00 97.8 71 20 121/81 97 03/11/17 02:00 72 03/11/17 01:00 70 03/11/17 00:00 78 03/10/17 23:00 98.5 81 16 118/74 96 03/10/17 23:00 74 03/10/17 22:00 80 03/10/17 21:00 78 03/10/17 20:00 92 03/10/17 20:00 98.1 75 16 147/81 97 03/10/17 19:00 78 03/10/17 12:32 97.9 73 14 118/73 97 I/O 03/10/17 03/10/17 03/10/17 03/11/17 03/11/17 03/11/17 07:00 15:00 23:00 07:00 15:00 23:00 Intake Total 250 ml 480 ml Output Total 175 ml Balance 250 ml 305 ml Intake Oral 250 ml 480 ml Output Urine Total 175 ml # Voids 3 1 Physical Exam GENERAL: Well-nourished, well-developed patient in no apparent distress. NECK: No JVD. No carotid bruit. CARDIOVASCULAR: Regular rate and rhythm. S1/S2 no murmur, rub, or gallop. RESPIRATORY: No accessory muscle use. Clear to auscultation. Breath sounds equal bilaterally. GASTROINTESTINAL: Abdomen soft, non-tender, nondistended. MUSCULOSKELETAL: Extremities without clubbing, cyanosis, or edema. r. radial pulse 2+ Laboratory Laboratory Tests Test 03/11/17 05:55 White Blood Count 10.9 TH/MM3 Red Blood Count 4.59 MIL/MM3 Hemoglobin 13.9 GM/DL Hematocrit 39.7 % Mean Corpuscular Volume 86.6 FL Mean Corpuscular Hemoglobin 30.2 PG Mean Corpuscular Hemoglobin 34.9 % Concent Red Cell Distribution Width 12.6 % Platelet Count 243 TH/MM3 Mean Platelet Volume 8.0 FL Neutrophils (%) (Auto) 60.5 % Lymphocytes (%) (Auto) 23.8 % Monocytes (%) (Auto) 8.5 % Eosinophils (%) (Auto) 6.6 % Basophils (%) (Auto) 0.6 % Neutrophils # (Auto) 6.6 TH/MM3 Lymphocytes # (Auto) 2.6 TH/MM3 Monocytes # (Auto) 0.9 TH/MM3 Eosinophils # (Auto) 0.7 TH/MM3 Basophils # (Auto) 0.1 TH/MM3 CBC Comment DIFF FINAL Differential Comment Sodium Level 137 MEQ/L Potassium Level 3.7 MEQ/L Chloride Level 102 MEQ/L Carbon Dioxide Level 27.8 MEQ/L Anion Gap 7 MEQ/L Blood Urea Nitrogen 15 MG/DL Creatinine 0.98 MG/DL Estimat Glomerular Filtration 81 ML/MIN Rate Random Glucose 135 MG/DL Calcium Level 8.6 MG/DL Assessment and Plan Problem List: (1) Chest pain (2) Hypertension Assessment and Plan CAD - small vessel disease not amendable to intervention, continue medical management with ASA, Plavix, JASMYN-I, BB, Statin, Nitrate as tolerated F/U in our office in one to two weeks Angel Sam Mar 11, 2017 08:19
[2017-03-11] MEDS: SODIUM CHLORIDE 0.9% FLUSH 10 ML FLUSH IV FLUSH SCH (08:38)
[2017-03-11] MEDS: CLOPIDOGREL 75 MG TAB PO SCH (08:38)
[2017-03-11] MEDS: PANTOPRAZOLE SOD 40 MG DELAYED RELEASE TAB PO SCH (08:38)
[2017-03-11] MEDS: oxyCODONE/ACETAMINOPHEN 5 MG/325 MG TAB PO PRN (08:38)
[2017-03-11] MEDS: CARVEDILOL 3.125 MG TAB PO SCH (08:38)
[2017-03-11] MEDS ORDERED: ASPIRIN 325 MG TAB PO SCH (09:00)
--- NOTE | 2017-03-11 09:24 | HHI.PR ---
Objective Vitals Vital Signs Date Time Temp Pulse Resp B/P Pulse Ox O2 Delivery O2 Flow Rate FiO2 03/11/17 08:06 98 21 03/11/17 08:00 98.2 76 18 120/78 97 03/11/17 08:00 76 03/11/17 06:00 72 03/11/17 05:27 16 03/11/17 05:16 21 03/11/17 05:00 72 03/11/17 04:00 78 03/11/17 03:00 74 03/11/17 03:00 97.8 71 20 121/81 97 03/11/17 02:00 72 03/11/17 01:00 70 03/11/17 00:00 78 03/10/17 23:00 98.5 81 16 118/74 96 03/10/17 23:00 74 03/10/17 22:00 80 03/10/17 21:00 78 03/10/17 20:00 92 03/10/17 20:00 98.1 75 16 147/81 97 03/10/17 19:00 78 03/10/17 12:32 97.9 73 14 118/73 97 I/O 03/10/17 03/10/17 03/10/17 03/11/17 03/11/17 03/11/17 07:00 15:00 23:00 07:00 15:00 23:00 Intake Total 250 ml 480 ml Output Total 175 ml Balance 250 ml 305 ml Intake Oral 250 ml 480 ml Output Urine Total 175 ml # Voids 3 1 Result Diagram: 03/11/17 0555 03/11/17 0555 A/P Problem List: (1) Chest pain in adult ICD Code: R07.9 Status: Acute Assessment and Plan Chest pressure/ concerning for ACS. serial CE trended up to 1.86. He was evaluated Dr. Ga Savage of cardiology and Dr. Giordano was consulted. He recommended a cardiac cath for which pt is scheduled for today. Continue BB, ASA and statin and nitro prn. continue TELE 1. Very small branch vessel coronary artery disease. 2. 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 3. Normal left-sided filling pressures. PLAN The culprit lesion appeared to be a very small diagonal branch not amenable to percutaneous intervention. HTN: was not on any meds. currentlyon beta jose hyperlipidemia: on statin. alcoholism: stable quit 2.5 years ago Kimberly Chaney MD Mar 11, 2017 09:24
--- NOTE | 2017-03-11 09:31 | HHI.PR ---
Subjective Remarks resting comfortably with no distress. no chest pain or sob. Objective Vitals Vital Signs Date Time Temp Pulse Resp B/P Pulse Ox O2 Delivery O2 Flow Rate FiO2 03/11/17 08:06 98 21 03/11/17 08:00 98.2 76 18 120/78 97 03/11/17 08:00 76 03/11/17 06:00 72 03/11/17 05:27 16 03/11/17 05:16 21 03/11/17 05:00 72 03/11/17 04:00 78 03/11/17 03:00 74 03/11/17 03:00 97.8 71 20 121/81 97 03/11/17 02:00 72 03/11/17 01:00 70 03/11/17 00:00 78 03/10/17 23:00 98.5 81 16 118/74 96 03/10/17 23:00 74 03/10/17 22:00 80 03/10/17 21:00 78 03/10/17 20:00 92 03/10/17 20:00 98.1 75 16 147/81 97 03/10/17 19:00 78 03/10/17 12:32 97.9 73 14 118/73 97 I/O 03/10/17 03/10/17 03/10/17 03/11/17 03/11/17 03/11/17 07:00 15:00 23:00 07:00 15:00 23:00 Intake Total 250 ml 480 ml Output Total 175 ml Balance 250 ml 305 ml Intake Oral 250 ml 480 ml Output Urine Total 175 ml # Voids 3 1 Result Diagram: 03/11/17 0555 03/11/17 0555 Imaging Last Impressions Chest X-Ray 03/09/17 1517 Signed Impressions: Service Date/Time: Thursday, March 09, 2017 15:39 - CONCLUSION: Normal examination. Mik Alegre MD Objective Remarks GENERAL: This is a well-nourished, well-developed patient, in no apparent distress. CARDIOVASCULAR: Regular rate and regular rhythm without murmurs, gallops, or rubs. RESPIRATORY: Clear to auscultation. Breath sounds equal bilaterally. No wheezes , rales, or rhonchi. GASTROINTESTINAL: Abdomen soft, non-tender, nondistended. Normal, active bowel sounds MUSCULOSKELETAL: Extremities without clubbing, cyanosis, or edema. NEURO: Alert & Oriented x4 to person, place, time, situation. Moves all ext x4 Procedures cardiac cath Medications and IVs Current Medications Aspirin (Aspirin) 325 mg ONCE ONCE PO Last administered on 03/09/17 15:35; Start 03/09/17 at 15:30; Stop 03/09/17 at 15:31; Status DC Sodium Chloride (NS Flush) 2 ml UNSCH PRN IVF FLUSH AFTER USING IV ACCESS Last administered on 03/09/17 15:50; Start 03/09/17 at 15:30; Stop 03/09/17 at 17:41 ; Status DC Nitroglycerin (Nitrostat Sl) 0.4 mg ONCE ONCE SL Last administered on 15:36; Start 03/09/17 at 15:30; Stop 03/09/17 at 15:31; Status DC Sodium Chloride (NS Flush) 2 ml UNSCH PRN IV FLUSH FLUSH AFTER USING IV ACCESS ; Start 03/09/17 at 17:30 Sodium Chloride (NS Flush) 2 ml BID IV FLUSH Last administered on 03/11/17 08: 38; Start 03/09/17 at 21:00 Acetaminophen (Tylenol) 500 mg Q4H PRN PO HEADACHE Last administered on 04:01; Start 03/09/17 at 17:30 Ondansetron HCl (Zofran Inj) 4 mg Q6H PRN IV NAUSEA; Start 03/09/17 at 17:30 Nitroglycerin (Nitroglycerin 2% Oint) 1 inch Q6HR TOP Last administered on 03/10 12:00; Start 03/09/17 at 18:00; Stop 03/10/17 at 14:35; Status DC Albuterol/ Ipratropium (Duoneb Neb) 1 ampule Q4HR NEB PRN INH DYSPNEA; Start at 17:30 Clonidine (Catapres) 0.1 mg Q4H PRN PO SYS BP GREATER THAN 160 MMHG; Start at 17:30 Pantoprazole Sodium (Protonix) 40 mg DAILY PO Last administered on 03/11/17 08 :38; Start 03/09/17 at 17:30 Aspirin (Aspirin Chew) 81 mg DAILY CHEW ; Start 03/10/17 at 09:00; Stop at 09:00; Status DC Aspirin (Aspirin Chew) 81 mg ONCE ONCE CHEW Last administered on 03/09/17 22: 42; Start 03/09/17 at 21:45; Stop 03/09/17 at 22:20; Status DC Atorvastatin Calcium (Lipitor) 10 mg HS PO Last administered on 03/09/17 22:41 ; Start 03/09/17 at 21:45; Stop 03/10/17 at 14:35; Status DC Carvedilol (Coreg) 3.125 mg Q12HR PO Last administered on 03/11/17 08:38; Start 03/10/17 at 09:00 Enoxaparin Sodium (Lovenox Inj) 80 mg ONCE ONCE SQ Last administered on 22:42; Start 03/09/17 at 22:00; Stop 03/09/17 at 22:20; Status DC Aspirin 325 mg 325 mg DAILY PO Last administered on 03/10/17 11:13; Start at 09:00; Stop 03/10/17 at 14:35; Status DC Heparin Sodium/ Sodium Chloride (Heparin-NS/Pf Inj) 500 ml @ As Directed STK- MED ONCE .ROUTE Last administered on 03/10/17 13:36; Start 03/10/17 at 13:36; Stop 03/10/17 at 13:37; Status DC Midazolam HCl (Versed Inj) 2 mg STK-MED ONCE .ROUTE Last administered on 14:07; Start 03/10/17 at 13:37; Stop 03/10/17 at 13:38; Status DC Fentanyl Citrate 100 mcg 100 mcg STK-MED ONCE .ROUTE Last administered on 14:06; Start 03/10/17 at 13:37; Stop 03/10/17 at 13:38; Status DC Nitroglycerin (Nitroglycerin Inj) 5 ml @ As Directed STK-MED ONCE .ROUTE Last administered on 03/10/17 14:13; Start 03/10/17 at 13:37; Stop 03/10/17 at 13:38 ; Status DC Heparin Sodium (Porcine) (Heparin Inj) 10,000 units STK-MED ONCE .ROUTE Last administered on 03/10/17 14:13; Start 03/10/17 at 13:53; Stop 03/10/17 at 13:54 ; Status DC Aspirin (Aspirin) 81 mg DAILY PO Last administered on 03/11/17 08:38; Start at 09:00 Atorvastatin Calcium (Lipitor) 40 mg HS PO Last administered on 03/10/17 21:11 ; Start 03/10/17 at 21:00 Isosorbide Mononitrate (Imdur) 30 mg DAILY@07 PO Last administered on 06:07; Start 03/11/17 at 07:00 Clopidogrel Bisulfate (Plavix) 75 mg DAILY PO Last administered on 03/11/17 08 :38; Start 03/10/17 at 14:45 Miscellaneous Information 1 ONCE ONCE XX ; Start 03/10/17 at 15:30; Stop at 16:33; Status DC Oxycodone/ Acetaminophen (Percocet 5-325 Mg) 1 tab Q4H PRN PO PAIN SCALE 1 TO 4 Last administered on 03/11/17 08:38; Start 03/10/17 at 15:30 Oxycodone/ Acetaminophen (Percocet 5-325 Mg) 2 tab Q4H PRN PO PAIN SCALE 5 TO 10; Start 03/10/17 at 15:30 Bacitracin (Bacitracin Oint Packet) 0.9 gm ONCE ONCE TOP Last administered on 03/10/17 15:30; Start 03/10/17 at 15:30; Stop 03/10/17 at 16:32; Status DC Bacitracin (Bacitracin Oint Packet) 0.9 gm ONCE ONCE TOP ; Start 03/10/17 at 16 :45; Stop 03/10/17 at 16:46; Status DC Iohexol (OMNIPAQUE 350 INJ (Material Expeditor)) 100 ml STK-MED ONCE OTHER ; Start at 17:20; Stop 03/10/17 at 17:21; Status DC A/P Assessment and Plan A/P - CAD s/p cardiac cath with : 1. Very small branch vessel coronary artery disease. 2. 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 3. Normal left-sided filling pressures. The culprit lesion appeared to be a very small diagonal branch not amenable to percutaneous intervention. continue medical treatment- cleared by cardiology for discharge with outpatient f/u. HTN: was not on any meds. continue imdur and coreg. hyperlipidemia: on statin. Discharge Planning dc home today with f/u; pcp and cardiology. see med list. d/w the patient. Kimberly Chaney MD Mar 11, 2017 09:31
[2017-03-11] MEDS ORDERED: ATOR40TA16 PO (09:33)
[2017-03-11] MEDS ORDERED: CARV3.125 PO (09:33)
[2017-03-11] MEDS ORDERED: ASPI325T PO (09:33)
[2017-03-11] MEDS ORDERED: PLAV75TA29 PO (09:33)
[2017-03-11] MEDS ORDERED: ISOS30TA3 PO (09:33)
--- NOTE | 2017-03-11 09:34 | HHI.DS ---
Discharge Summary Admission Date Mar 09, 2017 at 16:29 Discharge Date: Mar 11, 2017 Admitting Diagnosis chest pain, r/o ACS (1) Chest pain in adult ICD Code: R07.9 Diagnosis: Principal Procedures cardiac cath Brief History - From Admission Pt is a 51 yr old male w PMHx of HTN, recovering alcoholic, hyperlipidemia, presented to the chest pain center w complaints of chest pressure/tightness. Pt states that he woke up the day prior feeling uneased, he felt pressure on his chest and thought that it was gas. he tried to burp to see if that would relieve his pressure and drank soda but that didn't help. he went to work and the pressure-mid chest continued back and forth. He also felt some radiating pressure up to his neck. Denied any chest pain, SOB, nausea vomiting, diaphoresis, abdominal pain, palpitations. when he arrived here he receive nitroglycerin and that relieved his pressure. Currently he feels ok, no longer has the chest pressure CBC/BMP: 03/11/17 0555 03/11/17 0555 Significant Findings Laboratory Tests Test 03/09/17 03/09/17 03/09/17 03/11/17 15:30 19:59 23:29 05:55 White Blood Count 12.5 TH/MM3 (4.0-11.0) Neutrophils # (Auto) 8.7 TH/MM3 (1.8-7.7) Estimat Glomerular Filtration 69 ML/MIN (>89) 81 ML/MIN (>89) Rate Random Glucose 131 MG/DL 135 MG/DL (74-106) (74-106) Aspartate Amino Transf 41 U/L (15-37) (AST/SGOT) Creatine Kinase MB LESS THAN 0.5 9.2 NG/ML 22.5 NG/ML NG/ML (0.5-3.6) (0.5-3.6) (0.5-3.6) Triglycerides Level 300 MG/DL (42-150) Cholesterol Level 241 MG/DL (120-200) LDL Cholesterol 150 MG/DL (0-99) HDL Cholesterol 31.5 MG/DL (40.0-60.0) Troponin I 0.66 NG/ML 1.86 NG/ML (0.02-0.05) (0.02-0.05) Monocytes (%) (Auto) 8.5 % (0.0-8.0) Eosinophils (%) (Auto) 6.6 % (0.0-4.0) Eosinophils # (Auto) 0.7 TH/MM3 (0-0.4) Imaging Last Impressions Chest X-Ray 03/09/17 1517 Signed Impressions: Service Date/Time: Thursday, March 09, 2017 15:39 - CONCLUSION: Normal examination. Mik Alegre MD PE at Discharge GENERAL: This is a well-nourished, well-developed patient, in no apparent distress. CARDIOVASCULAR: Regular rate and regular rhythm without murmurs, gallops, or rubs. RESPIRATORY: Clear to auscultation. Breath sounds equal bilaterally. No wheezes , rales, or rhonchi. GASTROINTESTINAL: Abdomen soft, non-tender, nondistended. Normal, active bowel sounds MUSCULOSKELETAL: Extremities without clubbing, cyanosis, or edema. NEURO: Alert & Oriented x4 to person, place, time, situation. Moves all ext x4 Hospital Course - CAD s/p cardiac cath with : 1. Very small branch vessel coronary artery disease. 2. 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 3. Normal left-sided filling pressures. The culprit lesion appeared to be a very small diagonal branch not amenable to percutaneous intervention. continue medical treatment- cleared by cardiology for discharge with outpatient f/u. HTN: was not on any meds. continue imdur and coreg. hyperlipidemia: on statin. Pt Condition on Discharge: Good Discharge Disposition: Discharge Home Discharge Time: <= 30 minutes Discharge Instructions DIET: Follow Instructions for: Heart Healthy Diet Activities you can perform: Regular-No Restrictions Follow up Referrals: Cardiology PCP Follow-up New Medications: Aspirin (Aspirin) 325 Mg Tab 81 MG PO DAILY cad Days 30 Ref 0 TAB Atorvastatin (Atorvastatin) 40 Mg Tab 40 MG PO HS cad Days 30 Ref 0 TAB Carvedilol (Coreg) 3.125 Mg Tab 3.125 MG PO Q12HR cad Days 30 Ref 0 TAB Clopidogrel (Plavix) 75 Mg Tab 75 MG PO DAILY cad Days 30 Ref 0 TAB Isosorbide Mononitrate ER (Isosorbide Mononitrate ER) 30 Mg Giana 30 MG PO DAILY@07 30 Ref 0 TAB Kimberly Chaney MD Mar 11, 2017 09:34
--- NOTE | 2017-03-11 09:34 | HHI.DCPOC ---
Discharge Care Plan Diagnosis: (1) Chest pain Your Health Problems Are: Chest Pain Goals to Promote Your Health * To prevent worsening of your condition and complications * To maintain your health at the optimal level Directions to Meet Your Goals Take your medications as prescribed Follow your dietary instruction Follow activity as directed Keep your appointments as scheduled Take your immunizations and boosters as scheduled If your symptoms worsen call your PCP, if no PCP go to Urgent Care Center or Emergency Room Smoking is Dangerous to Your Health. Avoid second hand smoke Call the 24-hour hour crisis hotline for domestic abuse at Kimberly Chaney MD Mar 11, 2017 09:34
--- NOTE | 2017-03-11 18:13 | ECHRPT ---
Indication: Chest pain, unspecified CONCLUSIONS Technically difficult echo In limited views, the left ventricular systolic function is normal with an estimated ejection fracti on in the range of 55-60%. There was limited left ventricular wall motion assessment due to poor endocardial visualization. BP: / HR: Rhythm: Sinus MEASUREMENTS (Male / Female) Normal Values Technical Quality:Fair 2D ECHO LV Diastolic Diameter PLAX 4.3 cm 4.2 - 5.9 / 3.9 - 5.3 cm LV Systolic Diameter PLAX 3.3 cm IVS Diastolic Thickness 1.1 cm 0.6 - 1.0 / 0.6 - 0.9 cm LVPW Diastolic Thickness 0.8 cm 0.6 - 1.0 / 0.6 - 0.9 cm LV Relative Wall Thickness 0.4 RV Internal Dim ED PLAX 2.4 cm LA Systolic Diameter LX 3.5 cm 3.0 - 4.0 / 2.7 - 3.8 cm M-MODE Aortic Root Diameter MM 3.1 cm AV Cusp Separation MM 1.9 cm DOPPLER Mitral E Point Velocity 55.5 cm/s Mitral A Point Velocity 48.2 cm/s Mitral E to A Ratio 1.2 TR Peak Velocity 179.0 cm/s TR Peak Gradient 12.8 mmHg FINDINGS LEFT VENTRICLE Normal left ventricular size. Wall thickness is normal. In limited views, the left ventricular systolic function is normal with an estimated ejection fracti on in the range of 55-60%. There was limited left ventricular wall motion assessment due to poor endocardial visualization. RIGHT VENTRICLE Normal right ventricular size and systolic function. LEFT ATRIUM The left atrial size is normal. RIGHT ATRIUM The right atrial size is normal. ATRIAL SEPTUM The interatrial septum not well visualized. AORTA The aortic root and proximal ascending aorta are not well visualized. MITRAL VALVE Structurally normal mitral valve. No mitral valve stenosis or regurgitation. AORTIC VALVE Trileaflet aortic valve. No aortic valve stenosis or regurgitation. TRICUSPID VALVE Structurally normal tricuspid valve. There is trace tricuspid valve regurgitation. PULMONARY VALVE Trivial pulmonary valve regurgitation. VESSELS The inferior vena cava is normal in size. PERICARDIUM No pericardial effusion. Reilly Oviedo DO (Electronically Signed) Final Date:11 March 2017 18:12
== END 2017-03-11 12:15 | disposition home or self-care (01) ==
LOC: NEPC 14:59 → NEDA 16:29 → NEPHCDU 18:44 → HCIS 03-10 17:40
PROVIDERS: ADMIT Family Medicine; ATTEND Family Medicine
DX: R07.89 Other chest pain (principal); I10 Essential (primary) hypertension; E78.5 Hyperlipidemia, unspecified; I25.10 Atherosclerotic heart disease of native coronary artery without angina pectoris; Z79.899 Other long term (current) drug therapy
CPT/HCPCS: 71010; 80048; 80053; 80061; 82550; 82552; 83690; 83735; 84484; 85025; 85610; 85730; 93005; 93306; 93458; 99285; C1769; C1893; G0378; J1644; J1650; J2250; J3010; Q9967

== ENCOUNTER 2017-08-05 10:27 | Emergency (ER) | payer OTHER ==
[~2017-08-05] VITALS: Ht 160 cm; Wt 90.0 kg
[~2017-08-05 10:27] MED LIST changes: +ASPI-183 PO; +ATOR40TA16 PO; +CARV3.125 PO; -CIPR500T4 PO; -DIFL500T PO; +ISOS30TA3 PO; -METR500I3 PO; +PLAV75TA29 PO
[2017-08-05 10:29] VITALS: BP 141/87; PULSE 93; RESP 17; TEMP 98.5; O2SAT 98
--- NOTE | 2017-08-05 10:49 | PD ---
HPI Chief Complaint: Injury Time Seen by Provider: 10:41 Travel History International Travel<30 days: No Contact w/Intl Traveler<30days: No Traveled to known affect area: No History of Present Illness HPI 51-year-old male presents emergency Department with complaint of right knee pain after slipping and twisting his knee while at work yesterday. Denies paresthesias, loss of sensation, decreased range of motion, decreased strength to the affected extremity. Has been ambulatory on the affected extremity. Pain is worse with external rotation of the leg, ambulation. Pain is decreased from a rest. Pain is to the lateral aspect. Rates pain 8/10. Taking ibuprofen and icing the knee for symptom management. Has no other medical complaints. No known allergies. Dr. Anuj Paul his primary care provider. No other modifying factors or associated signs and symptoms. PFSH Past Medical History Arthritis: No Blood Disorders: No Anxiety: Yes Heart Rhythm Problems: No Cancer: No Cardiovascular Problems: Yes ([place]) High Cholesterol: Yes Chemotherapy: No Chest Pain: No Congestive Heart Failure: No Cerebrovascular Accident: No Diminished Hearing: No Endocrine: No GERD: No Glaucoma: No Genitourinary: No Hiatal Hernia: No Hypertension: Yes Immune Disorder: No Kidney Stones: Yes (HAS HAD LITHOTRIPSY) Musculoskeletal: No Neurologic: Yes Psychiatric: No Reproductive: No Respiratory: No Migraines: No Radiation Therapy: No Seizures: Yes (seizure from alcohol withdrawal.) Thyroid Disease: No Ulcer: No PNEUMOCCOCAL Vaccine (Year): 2 Past Surgical History Genitourinary Surgery: Yes (kidney stones) Oral Surgery: No Tonsillectomy: Yes Other Surgery: No Social History Alcohol Use: No (quit 2 yrs ago) Tobacco Use: No Substance Use: No Allergies-Medications (Allergen,Severity, Reaction): Coded Allergies: No Known Allergies (Verified , 04/10/15) Reported Meds & Prescriptions Reported Meds & Active Scripts Active Isosorbide Mononitrate ER (Isosorbide Mononitrate) 30 Mg Giana 30 Mg PO DAILY@ 07 30 Days Plavix (Clopidogrel Bisulfate) 75 Mg Tab 75 Mg PO DAILY 30 Days Coreg (Carvedilol) 3.125 Mg Tab 3.125 Mg PO Q12HR 30 Days Atorvastatin (Atorvastatin Calcium) 40 Mg Tab 40 Mg PO HS 30 Days Aspirin 325 Mg Tab 81 Mg PO DAILY 30 Days Review of Systems Except as stated in HPI: all other systems reviewed are Neg Physical Exam Narrative GENERAL: Well-nourished, well-developed male patient, in no acute distress; afebrile, nontoxic-appearing SKIN: Warm and dry. HEAD: Atraumatic. Normocephalic. EYES: Pupils equal and round. No scleral icterus. No injection or drainage. ENT: Mucosa pink and moist. Airway patent. NECK: Trachea midline. CARDIOVASCULAR: Regular rate. RESPIRATORY: No accessory muscle use. GASTROINTESTINAL: Rounded. MUSCULOSKELETAL: Right knee nonedematous, nonerythematous, and without ecchymosis; full range of motion and flexion to 90; point tenderness to the lateral aspect; joint stable with negative drawer test; no obvious deformity. Right Lower extremity is supple and non-tense with 2+ pedal pulse and sensory intact and without erythema or edema. Ambulatory in room with a limp to the right lower extremity. No cyanosis. No edema. No deformity. NEUROLOGICAL: Awake and alert. Oriented 3. No obvious cranial nerve deficits. Motor grossly within normal limits. Normal speech. PSYCHIATRIC: Appropriate mood and affect; insight and judgment normal. Data Data Last Documented VS Vital Signs Date Time Temp Pulse Resp B/P (MAP) Pulse Ox O2 Delivery O2 Flow Rate FiO2 08/05/17 10:29 98.5 93 17 141/87 (105) 98 Room Air Orders Orders Knee, Complete (4vws) (08/05/17 10:48) Crutches (08/05/17 10:48) Ed Discharge Order (08/05/17 12:00) Splint Or Brace Apply/Monitor (08/05/17 12:00) [facility] Medical Decision Making Medical Screen Exam Complete: Yes Emergency Medical Condition: Yes Medical Record Reviewed: Yes Differential Diagnosis Knee sprain, knee injury, knee fracture, meniscal tear Narrative Course 51-year-old male with right knee injury. Patient took ibuprofen prior to arrival; instructed patient not to take NSAIDs secondary to the patient being on Plavix. Right knee x-ray ordered. 1159: Right knee x-ray with no acute findings. Patient provided a copy of the x-ray report. Crutches and Young bandage provided for support. Instructed patient to follow up with orthopedic surgeon. Instructed patient to follow up with primary care provider. Patient verbalizes understanding and agreement with treatment plan. Patient is medically cleared and stable for discharge. Discussed reasons to return to the emergency department. Patient agrees with treatment plan. The patients vital signs are stable and the patient is stable for outpatient follow-up and treatment. Patient discharged home, stable and in no acute distress. Diagnosis Primary Impression: Right knee injury Qualified Codes: S89.91XA - Unspecified injury of right lower leg, initial encounter Referrals: Orthopaedic Surgeon Primary Care Physician Patient Instructions: Crutch Instructions (ED), General Instructions, Knee Sprain (ED) Additional Instructions: Tylenol as needed and as directed to reduce pain and inflammation Rest, ice, compress, and elevate extremity to decrease pain and inflammation Knee brace for support Crutches for support Avoid aggravating activity; increase activity as tolerated Follow-up with primary care provider Follow-up with orthopedics Return to the emergency department immediately with worsening symptoms Med/Other Pt SpecificInfo: No Change to Meds, No Meds Exist/No RX given Disposition: 01 DISCHARGE HOME Condition: Stable Chula Sheets Aug 05, 2017 10:49
--- NOTE | 2017-08-05 11:52 | RADRPT ---
EXAM DATE/TIME: 08/05/2017 11:12 [place] COMPARISON: No previous studies available for comparison. INDICATIONS : Right knee pain after slipping and falling at work yesterday. MEDICAL HISTORY : Hypertension. SURGICAL HISTORY : None. ENCOUNTER: Initial ACUITY: 2 days PAIN SCORE: 8/10 LOCATION: Right lateral knee. FINDINGS: Four view examination of the right knee demonstrates no evidence of fracture or dislocation. Bony mi neralization is normal. The articular surfaces are intact. The suprapatellar soft tissues have a no rmal configuration. CONCLUSION: No acute disease. Cornelius Baker MD on August 05, 2017 at 11:50 Board Certified Radiologist. This report was verified electronically.
== END 2017-08-05 12:35 | disposition home or self-care (01) ==
LOC: NEPD 10:27
DX: S89.91XA Unspecified injury of right lower leg, initial encounter (principal); W01.0XXA Fall on same level from slipping, tripping and stumbling without subsequent striking against object, initial encounter
CPT/HCPCS: 73564; 99284; E0113

== ENCOUNTER 2018-08-09 07:11 | Observation (INO) ==
--- NOTE | 2018-08-09 07:40 | ED ---
HPI General Chief Complaint: Neuro Symptoms/Deficit Stated Complaint: Numbness in left hand Time Seen by Provider: 08/09/18 07:32 Source: patient Mode of arrival: ambulatory Limitations: other (poor historian) History of Present Illness HPI Narrative: 52 y/o male states he awoke this morning and felt numbness to his left hand. He states he is not having numbness anywhere else and denies any other current concerns. He states he is concerned as his hand is not getting better. He denies known trauma. He states he did democrat hard last night and had a lot to drink. Onset (ago): unknown Location: Reports left arm Quality: Reports numb Relieving factors: none Exacerbating factors: none On Anticoagulants: No Associated symptoms: Reports denies other symptoms Treatments Prior to Arrival: Reports none Related Data Home Medications Medication Instructions Recorded Confirmed atorvastatin [Lipitor] 20 mg PO QPM 08/09/18 08/09/18 metformin 500 mg PO DAILY 08/09/18 08/09/18 Allergies Allergy/AdvReac Type Severity Reaction Status Date / Time No Known Allergies Allergy Verified 08/09/18 07:38 Review of Systems ROS: all other systems reviewed are negative [facility] Medical History Medical History Alcoholic (Acute) Diabetes (Acute) Hyperlipemia (Acute) Hypertension (Acute) Surgical History Surgical History No history of previous surgery (Acute) Social History Social History Substance History: Active Abuse Second Hand Smoke Exposure: No Smoking Status: Never smoker How Often Do You Have a Drink Containing Alcohol: 4 or more times a week Recent Travel in [facility] within the Last 8 Weeks: No Recent Out of Country Travel within the Last 8 Weeks: No Substance Abuse Detail Marijuana: Substance Use Status: Active Route Used Substance Abuse: Inhalation Reason for Use: Calm Down Crack/Cocaine: Substance Use Status: Active Route Used Substance Abuse: Inhalation Reason for Use: Get High Immunization History Tetanus Immunization: >5 Years Exam Narrative Exam Narrative: GENERAL: 52 y/o male in no apparent distress SKIN: Focused skin assessment warm/dry. HEAD: Atraumatic. Normocephalic. EYES: Pupils equal and round. No scleral icterus. No injection or drainage. ENT: No nasal bleeding or discharge. Mucous membranes pink and moist. NECK: Trachea midline. CARDIOVASCULAR: Regular rate and rhythm. RESPIRATORY: No accessory muscle use. Clear to auscultation. Breath sounds equal bilaterally. GASTROINTESTINAL: Abdomen soft, non-tender, nondistended. MUSCULOSKELETAL: No obvious deformities. No clubbing. No cyanosis. No edema. Patient notes tingling in the ulnar distribution to left hand and states he cannot feel in that area. Patient has good capillary refill, strong radial pulse, no specific joint pain NEUROLOGICAL: Awake and alert. Neurologically intact other than noting numbness to left hand, motor grossly within normal limits. Normal speech. PSYCHIATRIC: Appropriate mood and affect; insight and judgment normal. Course Reevaluation(s) Reevaluation #1: patient updated and agrees to admit, given aspirin Consultations Consultation #1: dr constantino states to check mri brain and if ok can go home Consultation #2: dr garcia agrees to admit Initial Documented Vital Signs Temperature 98.9 F 08/09/18 07:26 Pulse Rate 92 H 08/09/18 07:26 Respiratory Rate 16 08/09/18 07:26 Blood Pressure 165/94 H 08/09/18 07:26 Pulse Oximetry 96 08/09/18 07:26 Last Documented Vital Signs Temperature 98.9 F 08/09/18 07:26 Pulse Rate 92 H 08/09/18 07:41 Respiratory Rate 18 08/09/18 07:41 Blood Pressure 135/81 08/09/18 07:41 Pulse Oximetry 98 08/09/18 07:41 NIH Stroke Scale NIH Stroke Scale Level of Consciousness: 0-Alert Orientation Questions: 0-Answers both correct Responds to Commands: 0-Both tasks correct Gaze Eye Movement: 0-Horizontal movement WNL Visual Ferrer: 0-No visual field defect Facial Movement: 0-Normal Motor Functions Arm LEFT: 0-No drift Motor Functions Arm RIGHT: 0-No drift Motor Functions Leg LEFT: 0-No drift Motor Functions Leg RIGHT: 0-No drift Limb Ataxia: 0-No ataxia Sensory Loss: 1-Mild sensory loss Best Language: 0-Normal Articulation: 0-Normal Extinction or Inattention Sensory: 0-Absent Total: 1 Medical Decision Making MDM Narrative Medical decision making narrative: Patient does not know time of onset and is now telling nursing staff he also used cocaine. Given his multiple risk factors although by history and exam this appears to be a radial nerve palsy will check other workup and discuss with neurology Medical Screen Exam Complete: Yes Emergency Medical Condition: Yes Differential Diagnosis Differential Diagnosis: Radial nerve palsy, atypical cardiac, electrolyte, subdural Lab Data Lab results reviewed: Yes I reviewed the patient's lab results. Result diagrams: 08/09/18 07:50 08/09/18 07:50 Lab Results 08/09/18 08/09/18 08/09/18 Range/Units 07:50 07:50 07:50 WBC 10.6 (4.0-11.0) th/mm3 RBC 4.91 (4.50-5.90) mil/mm3 Hgb 15.3 (13.0-17.0) gm/dL Hct 42.9 (39.0-51.0) % MCV 87.4 (80.0-100.0) fL MCH 31.2 (27.0-34.0) pg MCHC 35.8 (32.0-36.0) % RDW 13.2 (11.6-17.2) % Plt Count 320 (150-450) th/mm3 MPV 7.0 (7.0-11.0) fL Neut % (Auto) 57.6 (16.0-70.0) % Lymph % (Auto) 28.9 (9.0-44.0) % Fannin % (Auto) 10.9 H (0.0-8.0) % Eos % (Auto) 1.9 (0.0-4.0) % Baso % (Auto) 0.7 (0.0-2.0) % Neut # (Auto) 6.1 (1.8-7.7) th/mm3 Lymph # (Auto) 3.1 (1.0-4.8) th/mm3 Fannin # (Auto) 1.2 H (0.0-0.9) th/mm3 Eos # (Auto) 0.2 (0.0-0.4) th/mm3 Baso # (Auto) 0.1 (0.0-0.2) th/mm3 WBC Differential . Differential Comment Auto diff final PT 10.7 (9.8-11.6) sec INR 1.1 Ratio APTT 26.3 (23.4-31.7) sec Sodium 140 (136-145) meq/L Potassium 3.2 L (3.5-5.1) meq/L Chloride 99 (98-107) meq/L Carbon Dioxide 32.0 (21.0-32.0) meq/L Anion Gap 9 (5-15) meq/L BUN 5 L (7-18) mg/dL Creatinine 0.89 (0.60-1.30) mg/dL Estimated GFR Greater than 89 (>89) mL/min Random Glucose 162 H (74-106) mg/dL Calcium 8.2 L (8.5-10.1) mg/dL Total Creatine Kinase 228 (39-308) U/L CK-MB (CK-2) Less than 1.0 (0.5-3.6) ng/mL Troponin I Less than 0.02 L (0.02-0.05) ng/mL Urine Opiates Screen (Neg) Ur Barbiturates Screen (Neg) Ur Amphetamines Screen (Neg) U Benzodiazepines Scrn (Neg) Urine Cocaine Screen (Neg) U Cannabinoids Screen (Neg) Serum Alcohol 200 H (0-5) mg/dL 08/09/18 08/09/18 08/09/18 Range/Units 08:00 08:40 11:00 WBC (4.0-11.0) th/mm3 RBC (4.50-5.90) mil/mm3 Hgb (13.0-17.0) gm/dL Hct (39.0-51.0) % MCV (80.0-100.0) fL MCH (27.0-34.0) pg MCHC (32.0-36.0) % RDW (11.6-17.2) % Plt Count (150-450) th/mm3 MPV (7.0-11.0) fL Neut % (Auto) (16.0-70.0) % Lymph % (Auto) (9.0-44.0) % Fannin % (Auto) (0.0-8.0) % Eos % (Auto) (0.0-4.0) % Baso % (Auto) (0.0-2.0) % Neut # (Auto) (1.8-7.7) th/mm3 Lymph # (Auto) (1.0-4.8) th/mm3 Fannin # (Auto) (0.0-0.9) th/mm3 Eos # (Auto) (0.0-0.4) th/mm3 Baso # (Auto) (0.0-0.2) th/mm3 WBC Differential Differential Comment PT (9.8-11.6) sec INR Ratio APTT (23.4-31.7) sec Sodium (136-145) meq/L Potassium (3.5-5.1) meq/L Chloride (98-107) meq/L Carbon Dioxide (21.0-32.0) meq/L Anion Gap (5-15) meq/L BUN (7-18) mg/dL Creatinine (0.60-1.30) mg/dL Estimated GFR (>89) mL/min Random Glucose (74-106) mg/dL Calcium (8.5-10.1) mg/dL Total Creatine Kinase (39-308) U/L CK-MB (CK-2) (0.5-3.6) ng/mL Troponin I Less than 0.02 L Less than 0.02 L (0.02-0.05) ng/mL Urine Opiates Screen Neg (Neg) Ur Barbiturates Screen Neg (Neg) Ur Amphetamines Screen Neg (Neg) U Benzodiazepines Scrn Neg (Neg) Urine Cocaine Screen Pos H (Neg) U Cannabinoids Screen Neg (Neg) Serum Alcohol (0-5) mg/dL Imaging Data Attestation: I personally reviewed and interpreted this imaging study as follows : Radiologist's impression: Head CT 08/09/18 07:36 CONCLUSION: Negative noncontrast head CT. . Chest X-Ray 08/09/18 07:37 CONCLUSION: No acute cardiopulmonary abnormality is identified. Head MRI 08/09/18 08:45 CONCLUSION: 1. Focal signal abnormality involving the central portion of the bj suggesting focal pontine ischemic change. Clinical correlation is recommended. 2. No acute hemorrhage, acute infarct, midline shift or extra-axial fluid collections. Discharge Plan Discharge Disposition Patient Disposition: ED Admit(ED Internal Use Only) Discharge Order Discharge Orders: ED Use Only Admit Order (Routine); Ordered 08/09/18 Ordered By: Angi Cadena Discharge Details Diagnosis: Stroke, Hand numbness Physicians Team ED Provider: Angi Cadena Primary Care Provider: Anuj Paul Attending Provider: Jana Limon Discharge Interventions Interventions: Vital Signs Last Done: 08/09/18 07:41 Status ED Status: Admitted Patient
[2018-08-09 08:10] LABS: Baso # (Auto) 0.1 th/mm3 (0.0-0.2); Baso % (Auto) 0.7 % (0.0-2.0); Eos # (Auto) 0.2 th/mm3 (0.0-0.4); Eos % (Auto) 1.9 % (0.0-4.0); Hematocrit 42.9 % (39.0-51.0); Hemoglobin 15.3 gm/dL (13.0-17.0); Lymph # (Auto) 3.1 th/mm3 (1.0-4.8); Lymph % (Auto) 28.9 % (9.0-44.0); Mean Corpuscular HGB Conc 35.8 % (32.0-36.0); Mean Corpuscular Hemoglobin 31.2 pg (27.0-34.0); Mean Corpuscular Volume 87.4 fL (80.0-100.0); Mono # (Auto) 1.2 th/mm3 (0.0-0.9); Mono % (Auto) 10.9 % (0.0-8.0); Neut # (Auto) 6.1 th/mm3 (1.8-7.7); Neut % (Auto) 57.6 % (16.0-70.0); Platelet Count 320 th/mm3 (150-450); Red Blood Count 4.91 mil/mm3 (4.50-5.90); Red Cell Distribution Width 13.2 % (11.6-17.2); White Blood Count 10.6 th/mm3 (4.0-11.0)
[2018-08-09 08:16] LABS: Activated Partial Thrombo Time 26.3 sec (23.4-31.7); INR 1.1 Ratio; Prothrombin Time 10.7 sec (9.8-11.6)
[2018-08-09 08:18] LABS: Amphetamine Screen,Urine Neg (Neg); Barbiturate Screen,Urine Neg (Neg); Cannabinoid Screen,Urine Neg (Neg); Cocaine Screen,Urine Pos (Neg)
[2018-08-09 08:19] LABS: Opiate Screen,Urine Neg (Neg)
--- NOTE | 2018-08-09 08:20 | CT ---
EXAM DATE: 08/09/2018 8:14 AM EST AGE/SEX: 52 years / Male INDICATIONS: Patient experiencing numbness to left hand since this morning. CLINICAL DATA: This is the patient's initial encounter. Patient reports that signs and symptoms have been present for 1 day and indicates a pain score of 0/10. MEDICAL/SURGICAL HISTORY: Diabetes. Hypertension. None. RADIATION DOSE: 56.35 CTDI (mGy) COMPARISON: [facility] [place], CT BRAIN W/O CONTRAST, 08/31/2013. . TECHNIQUE: CT of the head without contrast. Using automated exposure control and adjustment of the mA and/or kV according to patient size, radiation dose was kept as low as reasonably achievable to ob tain optimal diagnostic quality images. DICOM format image data is available electronically for revi ew and comparison. FINDINGS: Cerebrum: The ventricles are normal. No midline shift, mass lesion, hemorrhage or acute infarction. No extraaxial fluid collections are seen. Posterior Fossa: The cerebellum and brainstem demonstrate no acute abnormality. The 4th ventricle is midline. The cerebellopontine angle is within normal limits. Extracranial: The visualized sinuses are clear. Skull: The calvaria is intact. No skull fracture. CONCLUSION: Negative noncontrast head CT. . Electronically signed by: Jonnathan Shelton MD Board Certified Radiologist 08/09/2018 8:18 AM EST
[2018-08-09 08:26] LABS: Anion Gap 9 meq/L (5-15); Blood Urea Nitrogen 5 mg/dL (7-18); Calcium 8.2 mg/dL (8.5-10.1); Chloride 99 meq/L (98-107); Glucose,Random 162 mg/dL (74-106); Potassium 3.2 meq/L (3.5-5.1); Sodium 140 meq/L (136-145)
[2018-08-09 08:28] LABS: Alcohol 200 mg/dL (0-5)
[2018-08-09 08:31] LABS: Creatine Kinase 228 U/L (39-308); Glomerular Filtration Rate Greater Than 89 mL/min (>89)
--- NOTE | 2018-08-09 08:34 | XR ---
EXAM DATE: 08/09/2018 8:25 AM EST AGE/SEX: 52 years / Male INDICATIONS: Cough and heart palpitations CLINICAL DATA: This is the patient's initial encounter. Patient reports that signs and symptoms have been present for 1 day and indicates a pain score of 0/10. MEDICAL/SURGICAL HISTORY: None. None. COMPARISON: [facility] – [place], CHEST SINGLE AP, 03/09/2017. . FINDINGS: Portable AP view of the chest demonstrates a normal-sized cardiac silhouette. No effusion, consolidat ion, or pneumothorax is identified. The bones and soft tissues demonstrate no acute finding. CONCLUSION: No acute cardiopulmonary abnormality is identified. Electronically signed by: Jonnathan Shelton MD Board Certified Radiologist 08/09/2018 8:33 AM EST
--- NOTE | 2018-08-09 10:45 | MR ---
EXAM DATE: 08/09/2018 10:37 AM EST AGE/SEX: 52 years / Male INDICATIONS: . Numbness to left arm and hand. CLINICAL DATA: This is the patient's initial encounter. Patient reports that signs and symptoms have been present for 1 day and indicates a pain score of 2/10. MEDICAL/SURGICAL HISTORY: Diabetes mellitus type II. Hypertension. None. COMPARISON: [facility] [place], CT HEAD W/O CONTRAST, 08/09/2018. [facility] [place], CT BRAIN W/O CONTRAST, 08/31/2013. . TECHNIQUE: Multiplanar, multisequence examination of the brain was performed without contrast. FINDINGS: Cerebrum: The ventricles are normal for age. No evidence of midline shift, mass lesion, hemorrhage or acute infarction. No extraaxial fluid collections are seen. The pituitary gland and suprasellar cistern are normal in configuration. White Matter: No significant signal abnormalities are seen in the white matter. Posterior Fossa: There is focal signal abnormality involving the central portion of the bj suggesti ng focal pontine ischemic change. The cerebellum is intact. The 4th ventricle is midline. The cereb ellopontine angle is unremarkable. The cerebellar tonsils are normal in position. Diffusion Imaging: No focal areas of restricted diffusion are seen. No evidence of acute infarction . Extracranial: The visualized portions of the orbits and paranasal sinuses are unremarkable. CONCLUSION: 1. Focal signal abnormality involving the central portion of the bj suggesting focal pontine ische elizabeth change. Clinical correlation is recommended. 2. No acute hemorrhage, acute infarct, midline shift or extra-axial fluid collections. Electronically signed by: Kwabena Dobbins MD Board Certified Radiologist 08/09/2018 10:43 AM EST
[2018-08-09] MEDS ORDERED: Aspirin 325 MG Tablet PO ONE (10:54)
[2018-08-09] MEDS: Sod Chloride 0.9% Inj 1,000 ML IV.CONT SCH ×2 (11:09→16:57)
[2018-08-09] MEDS ORDERED: Dextrose 50% in Water 50 ML Vial IV.PUSH PRN (12:15)
[2018-08-09] MEDS ORDERED: Acetaminophen 325 MG Tablet PO PRN (12:15)
[2018-08-09] MEDS: Heparin - SQ 10,000 UNITS/ML Vial SQ SCH (12:31)
[2018-08-09] MEDS ORDERED: LORazepam 1 MG Tablet PO PRN (13:55)
[2018-08-09] MEDS ORDERED: Gadobutrol PF 10 MMOL/10 ML Vial (for RAD) IV.SIG ONE (14:01)
--- NOTE | 2018-08-09 14:06 | P.HPIM ---
History of Present Illness Primary Care Physician: Anuj Paul MD Chief Complaint: Left arm weakness History of Present Illness: 52-year-old gentleman states he awoke with left hand not working, and numbness in the fourth and fifth digits of the left hand. Patient states he had been drinking last night and also took some cocaine, which he states he rarely does. He then drank a beer this morning to take the edge off, but noted that he still had numbness tingling in his left hand. So he came to the emergency room, where CT of head was unremarkable, but MRI of the brain showed a central pontine infarct. Patient denies lightheadedness dizziness headache, no falls, no history of stroke, palpitations, or other symptoms. 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 PMhx: Udu-usstqme-dyqgszrci diabetes, hypertension, alcohol abuse PSXhx: Denies any surgeries SOChx: Does not smoke, admits to heavy alcohol use, admits to marijuana use, admits to occasional cocaine use, FAMhx: Denies premature cardiac disease stroke or cancer Review of Systems Review of Systems: all other systems reviewed are negative [facility] Medical History Medical History Alcoholic (Acute) Diabetes (Acute) Hyperlipemia (Acute) Hypertension (Acute) Surgical History Surgical History No history of previous surgery (Acute) Social History Social History Substance History: Active Abuse Second Hand Smoke Exposure: No Smoking Status: Never smoker How Often Do You Have a Drink Containing Alcohol: 4 or more times a week Recent Travel in [facility] within the Last 8 Weeks: No Recent Out of Country Travel within the Last 8 Weeks: No Substance Abuse Detail Marijuana: Substance Use Status: Active Route Used Substance Abuse: Inhalation Reason for Use: Calm Down Crack/Cocaine: Substance Use Status: Active Route Used Substance Abuse: Inhalation Reason for Use: Get High Immunization History Tetanus Immunization: >5 Years Medications and Allergies Allergies Allergy/AdvReac Type Severity Reaction Status Date / Time No Known Allergies Allergy Verified 08/09/18 07:38 Home Medications Medication Instructions Recorded Confirmed Type atorvastatin [Lipitor] 20 mg PO QPM 08/09/18 08/09/18 History metformin 500 mg PO DAILY 08/09/18 08/09/18 History Active Medications: Active Medications Acetaminophen (Tylenol) 650 mg PO Q4H PRN PRN Reason: Temp > 100.4 Al Hydroxide/Mg Hydroxide (Milk Of Fatmata Likina) 30 ml PO Q12H PRN PRN Reason: Mild Constipation Dextrose (D50w Vial) 50 ml IV.PUSH UNSCH PRN PRN Reason: PER HYPOGLYCEMIA PROTOCOL Glucagon (Glucagon Inj) 1 mg OTHER PRN PRN PRN Reason: for Hypoglycemia Protocol Heparin Sodium (Porcine) (Heparin Inj) 5,000 units SQ Q12H [facility] Last Admin: 08/09/18 12:31 Dose: 5,000 units Sodium Chloride (Ns Inj) 1,000 mls @ 70 mls/hr IV.CONT .[id number] [facility] Last Admin: 08/09/18 11:09 Dose: 70 mls/hr Insulin Aspart (Novolog Insulin Correctional Sugar Inj) 0 unit SQ ACHS [facility]; Protocol Ondansetron HCl (Zofran Inj) 4 mg IV.PUSH Q6H PRN PRN Reason: NAUSEA OR VOMITING Senna/Docusate Sodium (Leti-Colace) 1 tab PO BID [facility] Sennosides (Senokot) 17.2 mg PO Q12H PRN PRN Reason: Moderate Constipation Sodium Chloride (Ns Flush) 2 ml IV.FLUSH PRN PRN PRN Reason: FLUSH AFTER USING IV ACCESS Sodium Chloride (Ns Flush) 2 ml IV.FLUSH BID [facility] Sodium Chloride (Ns Flush) 2 ml IV.FLUSH PRN PRN PRN Reason: FLUSH AFTER USING IV ACCESS Physical Exam Vital signs: Last Vital Signs Temp 98.9 F 08/09/18 07:26 Pulse 91 H 08/09/18 11:15 Resp 18 08/09/18 11:15 BP 130/77 08/09/18 11:15 Pulse Ox 97 08/09/18 12:20 Intake & Output 08/07/18 08/08/18 08/09/18 08/10/18 06:59 06:59 06:59 06:59 Output Total 250 / 250 Balance -250 / -250 Weight 77.111 kg GEN well-developed well-nourished white male awake alert oriented to person time and place, pleasant in no acute distress, fluent speech HEENT normocephalic atraumatic, Pupils equal reactive, sclerae anicteric, extraocular motion intact, mucosa is moist. posterior pharynx clear, no facial asymmetry NECK supple no JVD trachea midline thyroid smooth not enlarged ANT CHEST WALL without mass or tenderness to palpation HEART S1-S2 regular without murmur gallops or clicks LUNGS clear to auscultation without wheeze rales or rhonchi , full symmetric expansion BACK exam is no CVA tenderness or mass ABDOMEN soft nondistended positive bowel sounds no guarding rebound rigidity LYMPH NODES no cervical, axillary or inguinal adenopathy noted EXTREMITIES no clubbing cyanosis or significant edema, peripheral pulses palpable +2 NEUROLOGIC cranial nerves II through XII appear grossly intact, strength is 5 out of 5 symmetrical lower extremities, left upper extremity 4 out of 5 strength , no clonus or rigidity SKIN warm and dry with good turgor, no other rash or sores noted Results Labs CBC & Chem 7: 08/09/18 07:50 08/09/18 07:[address] 08/09/18 07:36 CONCLUSION: Negative noncontrast head CT. . Chest X-Ray 08/09/18 07:37 CONCLUSION: No acute cardiopulmonary abnormality is identified. Head MRI 08/09/18 08:45 CONCLUSION: 1. Focal signal abnormality involving the central portion of the bj suggesting focal pontine ischemic change. Clinical correlation is recommended. 2. No acute hemorrhage, acute infarct, midline shift or extra-axial fluid collections. Caprini VTE Risk Assessment Caprini VTE Risk Assessment: Moderate/High Risk (score >= 2) Caprini Risk Assessment Model: Point Value = 1 Point Value = 2 Point Value = 3 Point Value = 5 Age 41-60 Minor surgery BMI > 25 kg/m2 Swollen legs Varicose veins or History of unexplained or recurrent spontaneous Oral contraceptives or hormone replacement Sepsis (< 1 month) Serious lung disease, including pneumonia (< 1 month) Abnormal pulmonary function Acute myocardial infarction Congestive heart failure (< 1 month) History of inflammatory bowel disease Medical patient at bed rest Age 61-74 Arthroscopic surgery Major open surgery (> 45 min) Laparoscopic surgery (> 45 min) Malignancy Confined to bed (> 72 hours) Immobilizing plaster cast Central venous access Age >= 75 History of VTE Family history of VTE Factor V Leiden Prothrombin [id number] Lupus anticoagulant Anticardiolipin antibodies Elevated serum homocysteine Heparin-induced thrombocytopenia Other congenital or acquired thrombophilia Stroke (< 1 month) Elective arthroplasty Hip, pelvis, or leg fracture Acute spinal cord injury (< 1 month) Prophylaxis Regimen: Total Risk Factor Score Risk Level Prophylaxis Regimen 0-1 Low Early ambulation 2 Moderate Order ONE of the following: *Sequential Compression Device (SCD) *Heparin 5000 units SQ BID 3-4 Higher Order ONE of the following medications: *Heparin 5000 units SQ TID *Enoxaparin/Lovenox 40 mg SQ daily (WT < 150 kg, CrCl > 30 mL/min) *Enoxaparin/Lovenox 30 mg SQ daily (WT < 150 kg, CrCl > 10-29 mL/min) *Enoxaparin/Lovenox 30 mg SQ BID (WT < 150 kg, CrCl > 30 mL/min) AND/OR *Sequential Compression Device (SCD) 5 or more Highest Order ONE of the following medications: *Heparin 5000 units SQ TID (Preferred with Epidurals) *Enoxaparin/Lovenox 40 mg SQ daily (WT < 150 kg, CrCl > 30 mL/min) *Enoxaparin/Lovenox 30 mg SQ daily (WT < 150 kg, CrCl > 10-29 mL/min) *Enoxaparin/Lovenox 30 mg SQ BID (WT < 150 kg, CrCl > 30 mL/min) AND *Sequential Compression Device (SCD) Assessment and Plan Plan ACUTE CVA - pontine infarct - admit, neuro consult, asa, echo, carotids, tele HTN ETOH ABUSE with etoh withdrawl/ pending DTs start CIWA protocol, thiamine, folate COCAINE and THC use - cessation discussed DYSLIPIDEMIA - cont statin and check fasting lipids HYPOKALEMIA - replace and check mg
--- NOTE | 2018-08-09 14:35 | MR ---
EXAM DATE: 08/09/2018 2:31 PM EST AGE/SEX: 52 years / Male INDICATIONS: CVA. Left arm and hand weakness. CLINICAL DATA: This is the patient's initial encounter. Patient reports that signs and symptoms have been present for 1 day and indicates a pain score of 2/10. MEDICAL/SURGICAL HISTORY: Diabetes mellitus type II. Hypertension. None. COMPARISON: [facility] [place], MR HEAD W/O CONTRAST, 08/09/2018. [facility] [place], CT HEAD W/O CONTRAST, 08/09/2018. . TECHNIQUE: 3D [id number] MRA was performed. Source images, multiplanar STS MIP, and 3D volum e MIP reconstructions were reviewed. FINDINGS: There is excellent visualization of the major intracranial arteries out to the second-order branch ve ssels. There is no evidence for aneurysm, vessel truncation or stenosis, and no evidence for vascula r malformation. CONCLUSION: 1. Negative MRA Cow ([place] [facility]) non contrast. Electronically signed by: Kwabena Dobbins MD Board Certified Radiologist 08/09/2018 2:33 PM EST
--- NOTE | 2018-08-09 15:13 | MR ---
EXAM DATE: 08/09/2018 2:46 PM EST AGE/SEX: 52 years / Male INDICATIONS: Left sided weakness. Left arm and hand weakness, CVA. CLINICAL DATA: This is the patient's initial encounter. Patient reports that signs and symptoms have been present for 1 day and indicates a pain score of 3/10. MEDICAL/SURGICAL HISTORY: Diabetes mellitus type II. Hypertension. None. COMPARISON: No prior exams available for comparison. TECHNIQUE: 10 ml Gadavist (gadobutrol) contrast infused MRA (single exam dose) of the extracranial circulation was performed using a neurovascular coil. Postprocessing was performed, including rotati ng sub-volume maximum intensity projections of each carotid artery, rotating full-volume maximum inte nsity projections of both carotid arteries, sagittal and coronal sliding thin-slab reformations of ea ch carotid artery, and left oblique sliding thin-slab reformation through the aortic arch to include the origin of the arch branch vessels. FINDINGS: Aortic Arch : There is a three-vessel origin of the great vessels from the aorta. No evidence of o stial narrowing. Right Carotid : The common carotid artery demonstrates no significant stenosis. The carotid bulb ernandez s a normal configuration without ulceration or narrowing. The internal carotid artery lumen is cha h without stenosis. The external carotid artery is within normal limits. Left Carotid : The common carotid artery demonstrates no significant stenosis. The carotid bulb has a normal configuration without ulceration or narrowing. The internal carotid artery lumen is smooth without stenosis. The external carotid artery is within normal limits. Vertebrals : The vertebral arteries have a symmetric diameter. No stenotic lesions are seen. CONCLUSION: No abnormality is identified in the neck arterial vasculature. Percent stenosis is calculated using the diameter of the stenotic region over the diameter of the nor mal distal internal carotid artery Electronically signed by: Jonnathan Shelton MD Board Certified Radiologist 08/09/2018 3:12 PM EST
--- NOTE | 2018-08-09 17:05 | ECG ---
Date Performed: 08/09/2018 Time Performed: 07:38:52 PTAGE: 52 years EKG: Sinus rhythm LOW QRS VOLTAGE IN PRECORDIAL LEADS BORDERLINE ECG PREVIOUS TRACING : 03/09/2017 22.09 Since the previous tracing, no significant change noted DOCTOR: Aung Torre Interpretating Date/Time 08/09/2018 17:04:22
[2018-08-09] MEDS: Insulin NovoLOG Aspart Correctional Sugar Inj SQ SCH ×2 (17:15→22:19)
--- NOTE | 2018-08-09 17:46 | P.CONNEU ---
History of Present Illness Service: Neurology Primary Care Provider: Anuj Paul MD Chief Complaint: Left arm weakness History of Present Illness: 52 y/o with left hand numbness. He woke up with symptoms. Numbness in his left fourth and fifth digit up to his wrist. Left hand feels also slightly weak. He had numbness occurring with fingers in the past however is not been persistent. Probably did not drink a lot overnight and may been leaning his left arm risk against it. He denies any neck pain or any radicular symptomatology denies any head or neck trauma. No history of TIA or stroke. Does have hypertension. Denies any fever night sweats or chills. No numbness tingling in his right arm or his legs. otherwise feels well. Review of Systems All other systems reviewed negative except as stated in HPI [facility] - History History Provided By: Patient - Medical History Medical History: Medical History (Last Reviewed 08/09/18 @ 14:26 by Siomara Gonzalez Director Call, [employer]) Alcoholic Diabetes Hyperlipemia Hypertension - Surgical History Surgical History: Surgical History (Last Reviewed 08/09/18 @ 07:41 by Angi Cadena MD) No history of previous surgery - Tobacco History Second Hand Smoke Exposure: No Smoking Status: Never smoker - Alcohol History How Often Do You Have a Drink Containing Alcohol: 4 or more times a week - Substance Use History Substance History: Active Abuse - Substance Use Type Marijuana Status: Active Route Used: Inhalation Reason for Use: Calm Down Crack/Cocaine Status: Active Route Used: Inhalation Reason for Use: Get High - Travel History Recent Travel in the [place] Within the Last 8 Weeks: No Recent Travel Out of the Country Within the Last 8 Weeks: No - Immunization History Tetanus Immunization: >5 Years Medications and Allergies Active Medications: Active Medications Acetaminophen (Tylenol) 650 mg PO Q4H PRN PRN Reason: Temp > 100.4 Al Hydroxide/Mg Hydroxide (Milk Of Magnesia Liq) 30 ml PO Q12H PRN PRN Reason: Mild Constipation Dextrose (D50w Vial) 50 ml IV.PUSH UNSCH PRN PRN Reason: PER HYPOGLYCEMIA PROTOCOL Folic Acid (Folic Acid) 1 mg PO DAILY [facility] Glucagon (Glucagon Inj) 1 mg OTHER PRN PRN PRN Reason: for Hypoglycemia Protocol Heparin Sodium (Porcine) (Heparin Inj) 5,000 units SQ Q12H [facility] Last Admin: 08/09/18 12:31 Dose: 5,000 units Sodium Chloride (Ns Inj) 1,000 mls @ 70 mls/hr IV.CONT .[id number] [facility] Last Admin: 08/09/18 16:57 Dose: 70 mls/hr Insulin Aspart (Novolog Insulin Correctional Sugar Inj) 0 unit SQ ACHS [facility]; Protocol Last Admin: 08/09/18 17:15 Dose: Not Given Lorazepam (Ativan Inj) 1 mg IV.PUSH Q4H PRN PRN Reason: for CIWA 8-10 Lorazepam (Ativan Inj) 2 mg IV.PUSH Q15M PRN PRN Reason: for CIWA > 20 Lorazepam (Ativan Inj) 2 mg IV.PUSH Q1H PRN PRN Reason: for CIWA 15-20 Lorazepam (Ativan) 1 mg PO Q4H PRN PRN Reason: for CIWA 8-10 Last Admin: 08/09/18 15:08 Dose: 1 mg Lorazepam (Ativan) 2 mg PO Q2H PRN PRN Reason: for CIWA 11-14 Lorazepam (Ativan Inj) 2 mg IV.PUSH Q2H PRN PRN Reason: for CIWA 11-14 Ondansetron HCl (Zofran Inj) 4 mg IV.PUSH Q6H PRN PRN Reason: NAUSEA OR VOMITING Potassium Chloride (K-Dur) 20 meq PO ONCE ONE Stop: 08/09/18 18:01 Senna/Docusate Sodium (Leti-Colace) 1 tab PO BID [facility] Sennosides (Senokot) 17.2 mg PO Q12H PRN PRN Reason: Moderate Constipation Sodium Chloride (Ns Flush) 2 ml IV.FLUSH BID [facility] Sodium Chloride (Ns Flush) 2 ml IV.FLUSH PRN PRN PRN Reason: FLUSH AFTER USING IV ACCESS Thiamine HCl (Vitamin B1) 100 mg PO BID [facility] Allergies Allergy/AdvReac Type Severity Reaction Status Date / Time No Known Allergies Allergy Verified 08/09/18 07:38 Home Medications Medication Instructions Recorded Confirmed Type atorvastatin [Lipitor] 20 mg PO QPM 08/09/18 08/09/18 History metformin 500 mg PO DAILY 08/09/18 08/09/18 History Exam Vital signs: Vital Signs 08/09/18 07:26 08/09/18 07:41 08/09/18 11:15 Temperature 98.9 F Pulse Rate 92 H 92 H 91 H Respiratory Rate 16 18 18 Blood Pressure 165/94 H 135/81 130/77 Pulse Oximetry 96 98 98 08/09/18 12:20 08/09/18 15:14 Temperature 97.9 F Pulse Rate 89 Respiratory Rate 16 Blood Pressure 128/65 Pulse Oximetry 97 95 Intake & Output 08/08/18 08/09/18 08/09/18 18:59 06:59 18:59 Intake Total 300 / 300 Output Total 250 / 250 Balance 50 / 50 Weight 85.4 kg Intake: IV 300 / 300 NS Inj 1,000 ML @ 70 mls/hr IV. 300 / 300 CONT .[id number] [facility] Rx#:[id number] Output: Urine 250 / 250 Other: Weight On Admission 85.4 kg Narrative: GENERAL: in NAD, looks well SKIN: Warm and dry. HEAD: Atraumatic. Normocephalic. EYES: Pupils equal and round. No scleral icterus. ENT: No nasal bleeding or discharge. Mucous membranes pink and moist. NECK: Trachea midline. No JVD. CARDIOVASCULAR: Regular rate and rhythm. RESPIRATORY: No accessory muscle use. GASTROINTESTINAL: Abdomen soft, non-tender, nondistended. MUSCULOSKELETAL: Extremities without clubbing, cyanosis, or edema. No obvious deformities. NEUROLOGICAL: Awake and alert. No aphasia, fluent articulate, No facial asymmetry, OU 3-2mm, eomi, VFF, No drift, Motor grossly within normal limits. Five out of 5 muscle strength in the arms and legs. Slightly reduced light touch left fourth fifth digits mainly palmar aspect midway down his palm negative Tinel at the elbow and wrist Msr 1-2+ sym, no clonus, planterflexor, PSYCHIATRIC: Appropriate mood and affect; insight and judgment normal. - Constitutional no acute distress - Routine HEENT Exam Head: Present: normocephalic Eye: Present: EOMI Results - Labs CBC & Chem 7: 08/09/18 07:50 08/09/18 07:50 Labs: Laboratory Results - last 24 hr 08/09/18 08/09/18 08/09/18 07:50 07:50 07:50 WBC 10.6 RBC 4.91 Hgb 15.3 Hct 42.9 MCV 87.4 MCH 31.2 MCHC 35.8 RDW 13.2 Plt Count 320 MPV 7.0 Neut % (Auto) 57.6 Lymph % (Auto) 28.9 Scurry % (Auto) 10.9 H Eos % (Auto) 1.9 Baso % (Auto) 0.7 Neut # (Auto) 6.1 Lymph # (Auto) 3.1 Scurry # (Auto) 1.2 H Eos # (Auto) 0.2 Baso # (Auto) 0.1 WBC Differential . Differential Comment Auto diff final PT 10.7 INR 1.1 APTT 26.3 Sodium 140 Potassium 3.2 L Chloride 99 Carbon Dioxide 32.0 Anion Gap 9 BUN 5 L Creatinine 0.89 Estimated GFR Greater than 89 POC Glucose Random Glucose 162 H Calcium 8.2 L Total Creatine Kinase 228 CK-MB (CK-2) Less than 1.0 Troponin I Less than 0.02 L Urine Opiates Screen Ur Barbiturates Screen Ur Amphetamines Screen U Benzodiazepines Scrn Urine Cocaine Screen U Cannabinoids Screen Serum Alcohol 200 H 08/09/18 08/09/18 08/09/18 08:00 08:40 11:00 WBC RBC Hgb Hct MCV MCH MCHC RDW Plt Count MPV Neut % (Auto) Lymph % (Auto) Scurry % (Auto) Eos % (Auto) Baso % (Auto) Neut # (Auto) Lymph # (Auto) Scurry # (Auto) Eos # (Auto) Baso # (Auto) WBC Differential Differential Comment PT INR APTT Sodium Potassium Chloride Carbon Dioxide Anion Gap BUN Creatinine Estimated GFR POC Glucose Random Glucose Calcium Total Creatine Kinase CK-MB (CK-2) Troponin I Less than 0.02 L Less than 0.02 L Urine Opiates Screen Neg Ur Barbiturates Screen Neg Ur Amphetamines Screen Neg U Benzodiazepines Scrn Neg Urine Cocaine Screen Pos H U Cannabinoids Screen Neg Serum Alcohol 08/09/18 08/09/18 12:27 17:13 WBC RBC Hgb Hct MCV MCH MCHC RDW Plt Count MPV Neut % (Auto) Lymph % (Auto) Scurry % (Auto) Eos % (Auto) Baso % (Auto) Neut # (Auto) Lymph # (Auto) Scurry # (Auto) Eos # (Auto) Baso # (Auto) WBC Differential Differential Comment PT INR APTT Sodium Potassium Chloride Carbon Dioxide Anion Gap BUN Creatinine Estimated GFR POC Glucose 166 H 128 H Random Glucose Calcium Total Creatine Kinase CK-MB (CK-2) Troponin I Urine Opiates Screen Ur Barbiturates Screen Ur Amphetamines Screen U Benzodiazepines Scrn Urine Cocaine Screen U Cannabinoids Screen Serum Alcohol - Imaging Impressions Head MRA 08/09/18 00:00 CONCLUSION: 1. Negative MRA Cow ([place] [facility]) non contrast. Neck MRA 08/09/18 00:00 CONCLUSION: No abnormality is identified in the neck arterial vasculature. Percent stenosis is calculated using the diameter of the stenotic region over the diameter of the normal distal internal carotid artery Head CT 08/09/18 07:36 CONCLUSION: Negative noncontrast head CT. . Chest X-Ray 08/09/18 07:37 CONCLUSION: No acute cardiopulmonary abnormality is identified. Head MRI 08/09/18 08:45 CONCLUSION: 1. Focal signal abnormality involving the central portion of the bj suggesting focal pontine ischemic change. Clinical correlation is recommended. 2. No acute hemorrhage, acute infarct, midline shift or extra-axial fluid collections. Review/Management - Diagnosis (1) Ulnar neuropathy Code(s): G56.20 - Lesion of ulnar nerve, unspecified upper limb Status: Acute Current Visit: Yes (2) Hypertension Code(s): I10 - Essential (primary) hypertension Status: Acute Current Visit : Yes - Review/Management Plan: On exam he appears to have a left ulnar mainly sensory neuropathy. This may be related to impingement at the elbow at the lower brachial plexus. C8 radiculopathy would be another possibility although with the absence of neck pain symmetric reflexes felt to be lesser likely. MRI brain scan reviewed. No evidence of any acute stroke. He has mild pontine rarefaction likely secondary to chronic hypertension and possibly ethanol use. Brain carotids normal. Recommendation To complete the workup we will obtain an MRI C-spine and brachial plexus If negative for any acute lesion which I suspect it will be, can be discharged and followed-up in the outpatient setting Avoid compression at the elbow or excessive EtOH intake May require outpatient occupational therapy The symptoms do not improve in the next few weeks he may require EMG nerve conduction study which can be done in the outpatient setting
[2018-08-09] MEDS: Senna/Docusate Sodium 8.6/50 MG Tablet PO SCH (22:18)
[2018-08-10] MEDS: Heparin - SQ 10,000 UNITS/ML Vial SQ SCH ×2 (02:17→12:36)
[2018-08-10] MEDS: Sod Chloride 0.9% Inj 1,000 ML IV.CONT SCH ×2 (04:39→05:59)
[2018-08-10 05:35] LABS: Calcium 8.3 mg/dL (8.5-10.1); Carbon Dioxide 28.4 meq/L (21.0-32.0); Potassium 3.6 meq/L (3.5-5.1)
[2018-08-10] MEDS: Insulin NovoLOG Aspart Correctional Sugar Inj SQ SCH ×2 (07:33→12:29)
[2018-08-10 07:48] VITALS: RESP 16
[2018-08-10] MEDS: Senna/Docusate Sodium 8.6/50 MG Tablet PO SCH (08:24)
[2018-08-10] MEDS ORDERED: Folic Acid 1 MG Tablet PO SCH (09:00)
--- NOTE | 2018-08-10 11:13 | MR ---
EXAM DATE: 08/10/2018 11:05 AM EST AGE/SEX: 52 years / Male INDICATIONS: . Numbness in left hand. CLINICAL DATA: This is the patient's subsequent encounter. Patient reports that signs and symptoms h ave been present for 2 days and indicates a pain score of 3/10. MEDICAL/SURGICAL HISTORY: Diabetes mellitus type II. Hypertension. None. COMPARISON: No prior exams available for comparison. TECHNIQUE: Multiplanar, multisequence MRI examination of the cervical spine was performed without co ntrast. FINDINGS: Vertebrae: Normal vertebral body height. Homogeneous marrow signal. Alignment: Normal. Cord: Normal configuration and signal. Post Fossa: The cerebellar tonsils are normal in position. C2-C3: The thecal sac has a normal configuration. There is no evidence of disc herniation or spinal canal stenosis. The neural foramina are patent bilaterally. C3-C4: The thecal sac has a normal configuration. There is no evidence of disc herniation or spinal canal stenosis. The neural foramina are patent bilaterally. C4-C5: The thecal sac has a normal configuration. There is no evidence of disc herniation or spinal canal stenosis. The neural foramina are patent bilaterally. C5-C6: There is mild disc bulging causing minimal flattening the anterior thecal space without signi ficant neural compression. C6-C7: The thecal sac has a normal configuration. There is no evidence of disc herniation or spinal canal stenosis. The neural foramina are patent bilaterally. C7-T1: No epidural impressions seen. CONCLUSION: 1. Minimal disc bulging C5-C6. I get a good look at the right C5, C6, C7 and C8 roots. I do not see an etiology for the right hand numbness. Electronically signed by: Dano Soto MD Board Certified Radiologist 08/10/2018 11:12 AM EST
[2018-08-10] MEDS ORDERED: Gadobutrol PF 7.5 MMOL/7.5 ML Vial (for RAD) IV.SIG ONE (11:15)
--- NOTE | 2018-08-10 11:46 | MR ---
EXAM DATE: 08/10/2018 11:33 AM EST AGE/SEX: 52 years / Male INDICATIONS: Left hand numbness. CLINICAL DATA: This is the patient's subsequent encounter. Patient reports that signs and symptoms h ave been present for 2 days and indicates a pain score of 3/10. MEDICAL/SURGICAL HISTORY: Diabetes. Hypertension. None. COMPARISON: No prior exams available for comparison. TECHNIQUE: Multi-planar, multi-sequence MRI examination of the left brachial plexus was performed wi thout contrast and after intravenous administration of 7.5 ml Gadavist (gadobutrol) contrast as a si ngle exam dose. FINDINGS: Soft Tissues: There is normal signal in the muscular and fatty tissues. No masses are seen. Lungs: The visualized pulmonary apex is unremarkable. Neurovascular: The vascular structures of the supraclavicular region are grossly intact. The visual ized structures in the region of the brachial plexus nerve roots and trunks are intact without mass o r enlargement. Bony Structures: There is mild chronic compression deformity involving the T3 vertebral body. Scolios is of the thoracic spine is noted. CONCLUSION: 1. Negative MR Brachial Plexus with and without contrast. 2. Mild chronic compression deformity involving the T3 vertebral body. 3. Scoliosis of the thoracic spine is noted. Electronically signed by: Kwabena Dobbins MD Board Certified Radiologist 08/10/2018 11:45 AM EST
[2018-08-10] MEDS ORDERED: Aluminum/Magnesium/Simethacone Susp 30 ML UDC PO PRN (12:44)
--- NOTE | 2018-08-10 12:53 | P.DS ---
DS: Providers Date of admission: 08/09/18 11:56 Primary care physician: Anuj Paul MD Consults: 08/09/18 12:15 Consult to Neurology Routine Consulting Provider: Beck Umana Reason for Consultation: pontine stroke Notified:: Office Spoke with:: Travis Date Notified:: 08/09/18 Time Notified:: 12:23 Ordering Provider: PATTI Brief History from admission: 52-year-old gentleman states he awoke with left hand not working, and numbness in the fourth and fifth digits of the left hand. Patient states he had been drinking last night and also took some cocaine, which he states he rarely does. He then drank a beer this morning to take the edge off, but noted that he still had numbness tingling in his left hand. So he came to the emergency room, where CT of head was unremarkable, but MRI of the brain showed a central pontine infarct. Patient denies lightheadedness dizziness headache, no falls, no history of stroke, palpitations, or other symptoms. 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 PMhx: [id number] diabetes, hypertension, alcohol abuse PSXhx: Denies any surgeries SOChx: Does not smoke, admits to heavy alcohol use, admits to marijuana use, admits to occasional cocaine use, FAMhx: Denies premature cardiac disease stroke or cancer DS: Diagnosis Discharge Diagnosis (1) Ulnar neuropathy: Status: Acute (2) Hypertension: Status: Acute DS: Summary Patient was admitted and seen in consultation by neurology, who felt that he had a peripheral mononeuropathy and MRI of cervical spine and brachial plexus was performed. Without any significant abnormality, patient was recommended to follow-up with outpatient occupational therapy and neurology, had a lengthy discussion with the patient regarding his alcohol use, his diabetes, and blood pressure control all of which could have been contributing to his symptoms. Neurology did not feel the abnormality on MRI was causing his symptoms, and was probably chronic ischemic related to his issues noted above. Patient was otherwise stable for discharge and outpatient follow-up w neurology for emg testing if not improved. discussed mvi and b complex supplementation as on metformin. Discharge diagnosis: PONTINE ISCHEMIC RAREFACTION L ULNAR MONONEUROPATHY HTN DYSLIPIDEMIA NIDDM TOBACCO ABUSE nicotine addiction COCAINE/ ILLICIT use ETOH ABUSE OBESITY BMI 34 Time Spent with Patient Total time spent providing and/or coordinating discharge services: Less than 30 minutes Status at Discharge Functional status at discharge: independent ambulation Overall status at discharge: patient is back to baseline Quality: VTE Deep Vein Thrombosis/Pulmonary Embolism Present on Admission: No Exam Narrative Exam Narrative: aaox3 nad heart s1s2 reg lungs clear no wrr abd soft nondt pos bs ext no edema no calf tenderness Results Labs on day of discharge: Labs from last 24 hours 08/10/18 08/10/18 08/10/18 12:13 07:32 04:43 Sodium 138 Potassium 3.6 Chloride 103 Carbon Dioxide 28.4 Anion Gap 7 BUN 16 Creatinine 0.91 Estimated GFR 88 L POC Glucose 141 H 124 H Random Glucose 126 H Calcium 8.3 L Magnesium 2.0 08/09/18 08/09/18 22:16 17:13 Sodium Potassium Chloride Carbon Dioxide Anion Gap BUN Creatinine Estimated GFR POC Glucose 113 H 128 H Random Glucose Calcium Magnesium Impressions ITS Impressions Head MRA 08/09/18 00:00 CONCLUSION: 1. Negative MRA Cow ([facility] [place]) non contrast. Neck MRA 08/09/18 00:00 CONCLUSION: No abnormality is identified in the neck arterial vasculature. Percent stenosis is calculated using the diameter of the stenotic region over the diameter of the normal distal internal carotid artery Head CT 08/09/18 07:36 CONCLUSION: Negative noncontrast head CT. . Chest X-Ray 08/09/18 07:37 CONCLUSION: No acute cardiopulmonary abnormality is identified. Head MRI 08/09/18 08:45 CONCLUSION: 1. Focal signal abnormality involving the central portion of the bj suggesting focal pontine ischemic change. Clinical correlation is recommended. 2. No acute hemorrhage, acute infarct, midline shift or extra-axial fluid collections. Cervical Spine MRI 08/10/18 18:31 CONCLUSION: 1. Minimal disc bulging C5-C6. I get a good look at the right C5, C6, C7 and C8 roots. I do not see an etiology for the right hand numbness. Brachial Plexus MRI 08/10/18 18:32 CONCLUSION: 1. Negative MR Brachial Plexus with and without contrast. 2. Mild chronic compression deformity involving the T3 vertebral body. 3. Scoliosis of the thoracic spine is noted. Discharge Plan Discharge Disposition Patient Disposition: Discharge Home Discharge Condition Condition: Good Discharge Order Discharge Orders: Discharge Order (Routine); Ordered 08/10/18 Ordered By: Jana Limon Physicians Team Primary Care Provider: Anuj Paul Attending Provider: Jana Limon Other Providers: Beck Umana Rxs /Orders / Referrals /Forms Prescriptions: Continue metformin 500 mg Tablet 500 mg PO DAILY RF: 0 atorvastatin [Lipitor] 20 mg Tablet 20 mg PO QPM RF: 0 Referrals: Referral to Occupation Therapy [Outside] - See Instructions (out patient OT regarding Left hand numbness) Anuj Paul MD [Primary Care Provider] - See Instructions Discharge Instructions Patient Printed Instructions: Cocaine Abuse (ED), Diabetic Peripheral Neuropathy (DC), Abuse of Alcohol (GEN), Hypertension (ED) Post Discharge Care Plan Care Plan Goals: Discharge Care Plan Goals for Stroke You have been diagnosed with or have a high risk for a stroke, or a TIA ( transient ischemic attack). During a stroke, blood stops flowing to part of your brain. This can damage areas in the brain that control other parts of the body. Symptoms after a stroke depend on which part of the brain has been affected. Directions to Meet your Goals: 1. Diet: Based on your situation, your doctor will direct you to make changes in your diet. Some of the changes may include: * Reducing the amount of fat and cholesterol you eat * Don't add salt to your food. * Eat more fresh vegetables and fruits * Eat more lean proteins, such as fish, poultry, and beans and peas (legumes). Cut down on red meat & processed meats * Use low-fat dairy products * Limit vegetable oils and nut oils. Avoid any food that has hydrogenated listed in its ingredients. * Limit sweets and processed foods such as chips, cookies, and baked goods 2. Prevent Falls/Injury: You may be at risk of falling. Activity: * Keep your surrounding clutter free to help you walk more easily. * Your doctor and therapist may decide if you need an assistive device to walk safely. Shower/Bathing: * Test the water temperature with a hand or foot that was not affected by the stroke. * Use grab bars, a shower seat, a hand-held showerhead, and a long-handled brush. Getting Dressed: * Dress while sitting, starting with the affected side or limb. * Wear shirts that pull easily over your head. Wear pants or skirts with elastic waistbands. * Use zippers with loops attached to the pull tabs. 3. Lifestyle Modifications: * Take your medicines exactly as prescribed. Dont skip doses. * Begin an exercise program as directed by your doctor. You can benefit from simple activities such as walking or gardening. * Limit how much alcohol you drink. Men should have no more than 2 alcoholic drinks a day. Women should limit themselves to 1 alcoholic drink per day. * Know your cholesterol level. Follow your doctor's recommendations about how to keep cholesterol under control. * If you are a smoker, quit now. Joining a stop-smoking program will improve your chances of success. Ask your doctor for medicines or other methods to help you quit. * Learn stress management techniques to help you deal with stress in your home and work life. 4. Stroke Risk Factors: Once youve had a stroke, youre at greater risk for another one. Listed below are some other factors that can increase your risk for a stroke: * High blood pressure and High Cholesterol * Cigarette or cigar smoking * Diabetes * Carotid or other artery disease * Atrial fibrillation, atrial flutter, or other heart disease * Not being physically active * Obesity * Certain blood disorders such as sickle cell anemia * Drinking too much alcohol * Abusing street drugs * Race * Gender * Family history of stroke * Diet high in salty, fried, or greasy foods 5. Follow-up: * Keep your medical appointments. Close follow-up is important to stroke rehabilitation and recovery. * Some medicines require blood tests to check for progress or problems. Keep follow-up appointments for any blood tests ordered by your providers. Call 911 right away if you have: Weakness, tingling, or loss of feeling on one side of your face or body Sudden double vision or trouble seeing in one or both eyes Sudden trouble talking or slurred speech Trouble understanding others Sudden, severe headache Dizziness, loss of balance, or a sense of falling Blackouts or seizures F.A.S.T. is an easy way to remember the signs of stroke. When you see these signs, you know that you need to call 911 fast. F.A.S.T. stands for: * F is for face drooping. One side of the face is drooping or numb. When the person smiles, the smile is uneven. * A is for arm weakness. One arm is weak or numb. When the person lifts both arms at the same time, one arm may drift downward. * S is for speech difficulty. You may notice slurred speech or trouble speaking. The person can't repeat a simple sentence correctly when asked. * T is for time to call 911. If someone shows any of these symptoms, even if they go away, call 911 right away. Make note of the time the symptoms first appeared. Status ED Status: Left Department Discharge Information Discharge Date/Time: 08/10/18 13:25
[2018-08-10 13:10] VITALS: BP 136/74; PULSE 96; TEMP 98.6; O2SAT 95
== END 2018-08-10 13:25 | disposition home or self-care (01) ==
LOC: NEPC 07:11 → INTOOBSV 11:56 → NEDA 11:56 → NEPFCDU 14:27
PROVIDERS: ADMIT Internal Medicine; ATTEND Internal Medicine
DX: F14.90 Cocaine use, unspecified, uncomplicated; F10.20 Alcohol dependence, uncomplicated; R20.0 Anesthesia of skin; Y90.7 Blood alcohol level of 200-239 mg/100 ml; E11.9 Type 2 diabetes mellitus without complications; E78.5 Hyperlipidemia, unspecified; G56.22 Lesion of ulnar nerve, left upper limb; I10 Essential (primary) hypertension; R79.89 Other specified abnormal findings of blood chemistry; F12.90 Cannabis use, unspecified, uncomplicated